=== PATIENT | female | born 1945 | race Caucasian/White ===

== ENCOUNTER 2018-10-12 10:27 | Emergency (ER) | payer MEDICARE, OTHER ==
[2018-10-12 11:14] LABS: BASO # 0.1 10^3/uL (0.0-0.2); BASO % 0.7 % (0.0-1.0); EOS # 0.3 10^3/uL (0.0-0.50); HEMATOCRIT 36.9 % (36.0-47.0); HEMOGLOBIN 12.4 g/dl (12.0-15.5); IMMATURE GRANULOCYTE % 0.7 % (0-3.0); LYMPH # 0.7 10^3/uL (1.5-4.5); LYMPH % 6.5 % (24.0-44.0); MEAN CORPUSCULAR HEMOGLOBIN 31.2 pg (27.0-33.0); MEAN CORPUSCULAR HGB CONC 33.6 g/dl (32.0-36.5); MEAN CORPUSCULAR VOLUME 92.9 fl (80.0-96.0); MONO # 0.6 10^3/uL (0.0-0.8); MONO % 5.7 % (0.0-5.0); NEUTROPHILS # 8.5 10^3/uL (1.8-7.7); NEUTROPHILS % 83.4 % (36.0-66.0); PLATELET COUNT, AUTOMATED 258 10^3/uL (150-450); RED BLOOD COUNT 3.97 10^6/uL (4.00-5.40); RED CELL DISTRIBUTION WIDTH 11.3 % (11.5-14.5); WHITE BLOOD COUNT 10.2 10^3/uL (4.0-10.0)
[2018-10-12 11:37] LABS: ALBUMIN 3.5 GM/DL (3.2-5.2); ALKALINE PHOSPHATASE 60 U/L (45-117); ALT/SGPT 24 U/L (12-78); ANION GAP 6 MEQ/L (8-16); AST/SGOT 27 U/L (7-37); BILIRUBIN,DIRECT < 0.1 MG/DL (0.0-0.2); BILIRUBIN,TOTAL 0.4 MG/DL (0.2-1.0); BLOOD UREA NITROGEN 24 MG/DL (7-18); CALCIUM LEVEL 9.5 MG/DL (8.8-10.2); CARBON DIOXIDE LEVEL 32 MEQ/L (21-32); CHLORIDE LEVEL 97 MEQ/L (98-107); CREATININE FOR GFR 1.06 MG/DL (0.55-1.30); GLOMERULAR FILTRATION RATE 54.2 (>39); GLUCOSE, FASTING 99 MG/DL (70-100); LIPASE 147 U/L (73-393); POTASSIUM SERUM 3.9 MEQ/L (3.5-5.1); SODIUM LEVEL 135 MEQ/L (136-145)
== END 2018-10-12 12:05 | disposition home or self-care (01) ==
LOC: M ED 10:27
DX: I10 Essential (primary) hypertension (principal); R00.1 Bradycardia, unspecified; G89.29 Other chronic pain; M54.9 Dorsalgia, unspecified; Z79.82 Long term (current) use of aspirin; Z79.899 Other long term (current) drug therapy; Z88.2 Allergy status to sulfonamides
CPT/HCPCS: 93005

== ENCOUNTER → 2021-07-05 | Outpatient (CLI) | payer MEDICARE, OTHER ==
[~2021-07-05] MED LIST: ASPI81TA26 PO; ATEN25TA PO; ESOM0.1C PO; GABA-1171 PO; MELA3CAP2 PO; MELO15TA28 PO; METO1TAB87 PO; MIRA3350 PO; OMEG100011 PO; PRAV10TA4 PO; TRIA37.53 PO; VITA100067 PO
--- NOTE | 2021-07-05 16:07 | REPMRS ---
Patient History The patient states she has not had a clinical breast exam in over a year. Family history of endometrial cancer at age 50 or over in mother, breast cancer at age 65 in sister, unknown cancer at age 60 in sister, unknown cancer at age 65 in mother, colorectal cancer at age 50 or over in paternal aunt. Benign core biopsy of the right breast. Took hormonal contraceptives for 3 years. Took unspecified hormones for 3 years. covid vaccine 11/2020 left arm. 12/2020 left arm. Patient states no breast complaints today. Patient has signed MRS History Sheet. Digital Woman Screen Mammo: July 05, 2021 - Exam #: [id number] Bilateral CC and MLO view(s) were taken. Technologist: RT Naima Prior study comparison: December 30, 2015, bilateral digital mammo screening bilat, performed at [facility]. August 14, 2014, bilateral bilat screen digital mammo, performed at [facility] ([facility]). FINDINGS: There are scattered fibroglandular densities. Screening. Digital screening (2D) mammography was performed bilaterally in the CC and MLO projections. Additionally, breast tomosynthesis (3D mammography) was performed bilaterally in the CC and MLO projections. Todays exam was compared to the prior exam/exams. By history, the patient has no complaints of a palpable breast abnormality or other significant breast complaints. The breasts are unchanged in size and shape. There are no judi-soft tissue densities or spiculated masses. There is no internal architectural distortion. Once again, stable benign appearing calcifications are seen..There are no suspicious judi-calcific clusters. Skin thickening or nipple retraction is not present. IMPRESSION: BI-RADS Category 2- Benign Findings. There is no evidence of malignant alteration of the breasts. Followup examination recommended in one year. The Volpara volumetric breast density category is B, there are scattered areas of fibroglandular densities. This mammogram was read with the assistance of CiRBA,an FDA approved computer aided detection system for mammography. The lifetime Tyrer-Cuzick score is 7.5 % Negative x-ray reports should not delay surgical consultation if a dominant or clinically suspicious mass is present. Not all breast cancers can be identified by mammography. Therefore, we recommend that you continue to perform regular breast self-examination and physical examination and then promptly contact your physician of any concerns or changes. Adenosis and dense breasts may obscure an underlying neoplasm. Assessment: BI-RADS/ACR category 2 mammogram. Benign Findings. Recommendation Routine screening mammogram of both breasts in 1 year. Electronically Signed By: Mike Garvey DO 07/05/21 [id number]
== END ==
LOC: M WHC 14:47
DX: Z12.31 Encounter for screening mammogram for malignant neoplasm of breast (principal); M81.0 Age-related osteoporosis without current pathological fracture

== ENCOUNTER → 2021-08-04 | Outpatient (CLI) | payer MEDICARE, OTHER | LOC: M LABSMTC 10:38 | PROVIDERS: ATTEND Anesthesiology | DX: Z01.818 Encounter for other preprocedural examination (principal); Z11.52 Encounter for screening for COVID-19 ==

== ENCOUNTER 2021-08-09 07:41 | Day surgery (SDC) | payer MEDICARE, OTHER ==
[~2021-08-09] VITALS: Ht 167.6 cm; Wt 69.9 kg
[~2021-08-09 07:41] MED LIST changes: +LIDOCAINE 2% 100MG/5ML SDV (FOR ANES.) As Ordered ONE; +NS 1,000 ML IV ONE; +propofoL 200 MG/20 ML VIAL As Ordered ONE
--- OUTSIDE RECORDS SUMMARY | 2021-08-09 07:44 | CCD | Continuity of Care Document ---
Author Author Erin BLAIR F.N.P. Organization Unknown Address [address], [address] [place] [address] Phone [phone] Care Team Providers Care Cms Expert Name Role Phone Riky Donato MD AUTM [phone] Problems Description No Information Available Social History Type Date Description Comments Sex Unknown Tobacco Use Start: Unknown End: Unknown Former Cigarette Smo ker Quit 1964 (college) ETOH Use Rarely consumes alcohol Tobacco Use Start: Unknown Patient has never smoked Sun Exposure moderate amount of sun exposure Sun Exposure Has experienced blistering from sunburns Sun Exposure Uses > 30 SPF Sun Exposure Has never used tanning bed Allergies, Adverse Reactions, Alerts Active Allergies Criticality Reaction | Severity Comments Date sulfa Unable to assess criticality 04/14/2015 Medications Active Medications SIG Qnty Indications Ordering Provide r Date [place]-Smoothe/FS Scalp 0.01% Oil apply to scalp with occlusion at bedtime then shampoo out in the morning every day until clear then as needed 118.280ml L21.8 Rashida O'alireza, F.N.P. 0 06/17/2020 Clobetasol Propionate 0.05% Ointme nt apply to hands sparingly x 2 weeks then prn 15gm L30.8 Rashida O'alireza, F.N.P. 09/17/2019 Fluticasone Propionate 0.005% Oint ment apply to under breasts sparingly twice a day x 1 week then as needed itching 15gm L40.0 Rashida Casey'alireza, F.N.P. 04/14/2015 Gabapentin 100mg Capsules 1 take one capsule by mouth three times a day Unknown Pravastatin Sodium 10mg Tablets 1 tab po every other day Unknown Aspir-81 Unknown Vitamin D3 Unknown Metoprolol Tartrate 25mg Tablets 1 by mouth every day Unknown Maxzide-25 37.5-25mg Tablets Unknown Sertraline HCL 50mg Tablets Unknown Losartan Potassium 50mg Tablets 1 by mouth every day Unknown Fish Oil 875mg Capsules Unknown Claritin Unknown Immunizations Description No Information Available Vital Signs Date Vital Result Comment 06/17/2021 9:31am BP Systolic 121 mmHg BP Diastolic 62 mmHg Weight 156.00 lb Respiratory Rate 16 /min 06/17/2020 9:48am BP Systolic 122 mmHg BP Diastolic 60 mmHg Body Temperature 97.4 F Results Test Acquired Date Facility Test Result H/L Range Note R Popliteal Space (1 Of 2) 06/17/2021 Sealed [facility] Icd9 Code ICD9 Code: L57.0 1, 2 PDFReport SEE IMAGE 1 A. No further treatment nec essary B. LN2 any remaining 2 ICD9 Code: L57.0 Protocol: shave Clinical Text: CYST VS BCC Final Diagnosis: ACTINIC KERATOSIS, HYPERTROPHIC, INFLAMED. Gross Text: The specimen grossly was irregular in shape and measured 6 x 6 mm. on the surface and 2 mm. deep. It was divided into 2 sections on the short axis. All of the tissue was submitted for processing. Microscopic Description: Markedly thickened, partially parakeratotic horn overlies epithelium showing partial thickness keratinocytic atypia between adnexal structures. There is solar elastosis in the dermis. CPT: 86121*2 Procedures Description No Information Available Medical Devices Description No Information Available Encounters Description No Information Available Assessments Date Code Description Provider 06/17/2021 D48.5 Neoplasm of uncertain behavior o f skin Rashida Blair, F.N.P. 06/17/2021 R20.8 Other disturbances of skin sensa tion Rashida Blair, F.N.P. 06/17/2021 L82.1 Other seborrheic keratosis Rosemarie Blair, F.N.P. 06/17/2021 L81.4 Other melanin hyperpigmentation Rashida Blair, F.N.P. 06/17/2021 L21.8 Other seborrheic dermatitis Shanon christiano Anum F.N.P. 06/17/2021 L30.8 Other specified dermatitis Rosemarie rinmilana Blair, F.N.P. 06/17/2021 L72.3 Sebaceous cyst Rashida mora FVenusN.P. 06/17/2021 Z80.8 Family history of ma lignant neoplasm of other organs or systems Jose Angel VillaseñorN.P. 06/17/2021 Z12.83 Encounter for screening for skye gnant neoplasm of skin Jose Angel VillaseñorNJodee. Plan of Treatment Future Appointment(s):* 08/10/2021 9:00 am - Rasihda Blair F.N.P. at Main Office * 06/23/2022 9:30 am - Jose Angel VillaseñorN.P. at Main Office 06/17/2021 - Jose Angel VillaseñorN.P.* D48.5 Neoplasm of uncertain behavior of skin* Comments:* Shave biopsy today L shoulder - cyst vs SCC and R popliteal space - verrucaDiscussed risks of biopsy to includes scarring, infection, need for further treatment. Alternative to the biopsy is watchful waitingInformed consent for biopsy signed and photographs takenVerified , name and sites. The area was prepped with alcohol and anesthestized with 1% Lidocaine with Epinephrine. The wound was dressed with band-aid and Vaseline. Patient tolerated well with no complications. Specimen sent to pathology Wound care instructions given Will call with pathology when availableInstructed to call with any problems * R20.8 Other disturbances of skin sensation* Comments:* See above. * L82.1 Other seborrheic keratosis* Comments:* Reassurance Discussed seborrheic keratoses are benign warty growths on the skin that appear with age and that they are not contagious The precise cause of Doug K's is unknown although can run in families so genes may play a role Discussed if ever becomes irritated to call for a removal appointment. * L81.4 Other melanin hyperpigmentation* Comments:* Solar lentigines - ReassuranceDiscussed that solar lentignes appear from the sun that was received years agoSunscreen use and sun protection discussed. * L21.8 Other seborrheic dermatitis* Comments:* StableContinue [place]-Smoothe/FS Oil PRN for flares. Knows to apply to damp scalp and cover with shower cap overnight. Shampoo in AM with OTC medicated shampoo.Instructed to call with any problems * L30.8 Other specified dermatitis* Comments:* StableContinue Clobetasol 0.05% ointment as needed for flares.Knows how to use topical steroid safely and not over use to prevent atrophyInstructed to call with any problems * L72.3 Sebaceous cyst* Comments:* Reassurance. * Z80.8 Family history of malignant neoplasm of other organs or systems* Comments:* Family history of MM See above * Z12.83 Encounter for screening for malignant neoplasm of skin* Comments:* See above * Follow up:* [place] [facility] [place] Status Description No Information Available Mental Status Description No Information Available Referrals Description No Information Available"
--- OUTSIDE RECORDS SUMMARY | 2021-08-09 07:44 | CCD | Continuity of Care Document ---
Author Author Erin BLAIR F.N.P. Organization Unknown Address [address], [address] [place] [address] Phone [phone] Care Team Providers Care Team Cdl Driver Name Role Phone Riky Donato MD AUTM [phone] Problems Description No Information Available Social History [...] SIG Qnty Indications Ordering Provide r Date [place]-Smoothe/FS Scalp 0.01% Oil apply to scalp with [...] R Popliteal Space (1 Of 2) 06/17/2021 Localize [facility] Icd9 Code ICD9 Code: L57.0 1, 2 [...] is solar elastosis in the dermis. CPT: 76115*2 Procedures Date Code Description Status 06/17/2021 61053 Office/Outpatient Established Mo d MDM 30-39 Min Completed 06/17/2021 52641 Each Separate/Additional Lesion Completed 06/17/2021 60924 Shave Biopsy Of Skin, Single Les ion Completed Medical Devices Description No Information Available Encounters Type Date Location Provider Dx Diagnosis Office Visit 06/17/2021 9:45a Main Office Amarilys Villaseñor D48.5 Neoplasm of uncertain behavior of skin R20.8 Other disturbances of skin s ensation L82.1 Other seborrheic keratosis L81.4 Other melanin hyperpigmentat ion L21.8 Other seborrheic dermatitis L30.8 Other specified dermatitis L72.3 Sebaceous cyst Z80.8 Family history of malignant neoplasm of organs or systems Z12.83 Encounter for screening for malignant neoplasm of skin Assessments Date Code Description Provider 06/17/2021 D48.5 Neoplasm of uncertain behavior o f skin Rashida Blair, F.N.P. 06/17/2021 R20.8 Other disturbances of skin sensa tion Rashida Blair, F.N.P. 06/17/2021 L82.1 Other seborrheic keratosis Rosemarie Blair, F.N.P. 06/17/2021 L81.4 Other melanin hyperpigmentation Rashida Blair, F.N.P. 06/17/2021 L21.8 Other seborrheic dermatitis Shanon Blair, F.N.P. 06/17/2021 L30.8 Other specified dermatitis Rosemarie Blair, F.N.P. 06/17/2021 L72.3 Sebaceous cyst Rashida mora, F.N.P. 06/17/2021 Z80.8 Family history of ma lignant neoplasm of other organs or systems Rashida Blair, F.N.P. 06/17/2021 Z12.83 Encounter for screening for skye gnant neoplasm of skin Rashida Blair, F.N.P. Plan of Treatment Future Appointment(s):* 08/10/2021 9:00 am - Rashida Blair, F.N.P. at Main Office * 06/23/2022 9:30 am - Rashdia Blair, F.N.P. at Main Office 06/17/2021 - Rashida Blair, F.N.P.* D48.5 Neoplasm of uncertain behavior of skin* [...] * L21.8 Other seborrheic dermatitis* Comments:* StableContinue [place]-Smoothe/FS Oil PRN for flares. Knows to apply [...] Comments:* See above * Follow up:* Yearly/PRN- [facility] Functional Status Description No Information Available Mental Status Description No Information Available Referrals Description No Information Available"
--- OUTSIDE RECORDS SUMMARY | 2021-08-09 07:44 | CCD | Clinical Summary ---
Author Author [facility] Organization [facility] Address [address] [place] [address] Phone Care Team Providers Care Harbor Tug Captain Name Role Phone Dayne OSCAR, Dr Sky Unavailable [phone] [facility] Radiology, Imaging Unavailable [phone] Ray DO, Jemma L PP [phone] [facility] Un[facility] [phone] Reason for Referral Date Encounter Description Provider Reason for Referral 06/08/21 Maxim Emmanuel COPPER ROLLER HANDLER PRINTING Request Consu ltation By Specialist Reason for Visit and Chief Complaint visit for: recheck chronic problems, med recheck, visit for: Telephonic Encoun ter for Acute Care. Telephonic visit is being utilized due to the COVID19 pandem ic - The Chief Complaint is: pt screened for telephonic appt for follow up on h er eye, pt states that her eye seems to be getting some what better but it still looks sore in the spot and pt states that she did see her eye dr, Dr. sexton. pt states that she wants to discuss the allergy med that was discussed before and a lso states that she has a fax number for [facility] radiology for mammogram [phone] due to [facility] being part of [facility]. pt has an gustabo t first part of June there [place] Problems Includes: Problems addressed during this encounter and other active Problems Current Visit Onset Date - Time Resolved Date - Time Provider C ondition Status Allergic Rhinitis 04/04/2018 - 12:00AM Jemma L Ray DO Active Hypertension (Systemic) 01/22/2015 - 12:00AM Eufemia Matamoros RUG INSPECTOR HELPER Active Past Visits Onset Date - Time Resolved Date - Time Provider Co ndition Status Hyponatremia 05/21/2020 - 12:00AM Jemma L Ray DO Acti ve Osteoporosis Without Current Pathological Fracture 05/01/2019 - 12:00AM Jemma L Ray DO Active Note: ; DEXA 05/07/19 showed osteopenia Tremor 01/31/2019 - 12:00AM Jemma L Ray DO Acti ve Skin Disorder Exanthem 01/31/2019 - 12:00AM Jemma L R ay DO Active Bursitis Left Hip 12/13/2018 - 12:00AM Jemma L Ray DO Active Note: seeing PT Generalized Anxiety Disorder 12/13/2018 - 12:00AM Ken da L Ray DO Active Osteoarthritis Localized Primary Hip Left 08/24/2018 - 12:00AM Jemma L Ray DO Active Intervertebral Disc Degeneration - Lumbar 08/23/2018 - 12:00AM Jemma L Ray DO Active 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 04/04/2018 - 12:00 AM Jemma L Ray DO Active Iliotibial Band Friction Syndrome 04/06/2017 - 12:00AM Jemma L Ray DO Active Carpal Tunnel Syndrome Right 02/01/2017 - 12:00AM Ken da L Ray DO Active 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 12/20/2016 - 12:00AM Jemma L Ray DO Active Actinomycosis Cutaneous Erythrasma 03/06/2015 - 12:00AM Jemma L Ray DO Active Vitamin D Deficiency 03/06/2015 - 12:00AM Jemma L Ray DO Active Colon Screening 02/21/2012 - 12:00AM Jemma L Ray DO A ctive Note: Unchanged - Colonoscop y 05/19/2016; needs repeat in 2 years Hyperlipidemia 08/19/2011 - 12:00AM Jemma L Ray DO Ac tive Note: Unchanged Trigeminal Neuralgia 02/18/2011 - 12:00AM Viji dickens RUG INSPECTOR HELPER Active Note: Well-Controlled - Cont rolled with Gabapentin,usually taking 100 mg daily; more prn Menopause 07/26/2010 - 12:00AM Milvia Campbell NP Active Note: Unchanged - Bone Densi ty 08/02 normal; followed by Dr. Deras Primary Insomnia 07/26/2010 - 12:00AM Milvia Campbell NP Active Note: Unchanged - Uses Ximena onin prn OSTEOARTHRITIS MULTIPLE SITES 09/22/2009 - 12:00AM Melva Campbell NP Active Note: Unchanged Plan of Treatment Pending Tests Order Diagnosis Results Due Ordering Provi orin Lab XR DEXA HIPS PELVIS SPINE 06/25/21 Bl markel Emmanuel NP Lab COMPREHENSIVE METABOLIC PANEL 06/26/21 Maxim Emmanuel NP Lab MG MAMMOGRAM BILAT DIG SCREEN 06/26/21 Maxim Emmanuel NP Future Appointments Date Time Location Provider Chronic Disease Follow-up 09/09/2021 8:00AM [facility] Maxim Emmanuel NP Future Tests Order Diagnosis Results Due Ordering Provid er Visit Summary - Standard Visit Visit Summary Standard Visi t Encntr screen mammogram for malignant neoplasm of breast 06/08/21 Maxim sellers NP Lab US BREAST BILATERAL COMPLETE 07/08/21 Maxim Emmanuel NP - Instructions for patient - Return to the clinic if condition wors ens or new symptoms arise - Continue current medication except whe re otherwise noted At all visits, please bring in all of your medications, including over the counter medications, in their original containers. This helps to maintain an accurate medication list and avoid medication errors. Thank you. Assessments Includes: Assessments from this encounter - Chalazion of right eyelid - Allergic rhinitis - Hypertension Instructions Includes: Instructions from this encounter Instructions to patient Instructions for patient Medical Equipment - Implanted Devices Includes: Current DevicesNo Medical Equipment Recorded Medications Includes: Medications discussed during this encounter and other current Medicati ons Discontinued / Stopped on this date Andres Emmanuel NP on 05/27/2021 Bacitracin 500 UNIT/GM Ophthalmic Ointment Provider: Maxim Emmanuel NP Diagnosis: Chalazion right eye, unspecified eyelid New / Renewed during this visit Maxim Emmanuel NP on 06/08/2021 EQ Loratadine 10 MG Oral Tablet Provider : Maxim Emmanuel NP 90 day supply: 90 tablet, 3 refills Diagnosis: All ergic rhinitis, unspecified once a day Pharmacy: [facility] - [address] [place] [address], [id number] - Current Medications (continue as prescribed) Gabapentin 100 MG Oral Capsule 05/27/2021 - 11/23/2021 Provi orin: Maxim Emmanuel NP Diagnosis: Trigeminal neuralgia three times a day 1 cap tid Maxzide-25 37.5-25 MG Oral Tablet 05/27/2021 - 11/23/2021 Pr ovider: Maxim Emmanuel NP Diagnosis: Essential (primary) hypertension once a day 1 tab daily Zoloft 50 MG Oral Tablet 05/27/2021 - 11/23/2021 Provider: Maxim Emmanuel NP Diagnosis: once a day; Metoprolol Succinate ER 50 MG Oral Tablet Extended Rel ease 24 Hour 05/27/2021 - 11/23/2021 Provider: Maxim Emmanuel NP Diagnosis: once a day Losartan Potassium 25 MG Oral Tablet 05/27/2021 - 11/23/2021 Provider: Maxim Emmanuel NP Diagnosis: once a day [facility] Fluticasone Propionate 50 MCG/ACT Nasal Suspension 05/27 - 05/22/2022 Provider: Maxim Emmanuel NP Diagnosis: Allergic rhinitis, u nspecified two sprays each nostril daily Erythromycin 5 MG/GM Ophthalmic Ointment 03/17/2021 Provider: Nalini Zavala NP Diagnosis: Unspecified conjunct ivitis Instill 1cm ribbon into affected eye QID x7days. Pravastatin Sodium 10 MG Oral Tablet 11/18/2020 Pro vider: Jemma Hector DO Diagnosis: as directed once every other day Loratadine 10 MG Oral Tablet 09/07/2020 Provider: Jess Lynn COPPER ROLLER HANDLER PRINTING Diagnosis: Acute sinusitis, uns pecified 1 tab by mouth once a day Triamcinolone Acetonide 0.1% External Ointment 01/31/2019 Provider: Jemma Hector DO Diagnosis: as directed; apply to thumb bid Vitamin D3 1000UNIT Oral Capsule 10/22/2018 Provide r: Diagnosis: MiraLax Powder 09/14/2016 Provider: Diagnosis: prn. recommended after colonoscopy [place] 3 1000 MG Capsule 03/10/2016 Provider: Diagnosis: Aspirin 81 MG Tablet 03/10/2016 Provider: Diagnosis: Medications Administered Includes: Administered Medications from this encounterNo Administered Medications Recorded Vital Signs Includes: Vital Signs from this encounter Vital Name 06/08/2021 09:58A Blood Pressure Sitting R 130/70 Weight (lb) 155.8 Pain Level 1 Note: pt unable to get full set of vitals. [place] Results Includes: Results discussed during this encounterNo Results Recorded For Specified Dates History of Present Illness Includes: History of Present Illness from this encounter Erin Trimble is a 76 year old female. - Allergy list reviewed - Medication reconciliation performed - Medication list reviewed - No systemic symptoms - No fever - No chills - No cardiovascular symptoms - No chest pain or discomfort - The heart rate was not slow - The heart rate was not fast - No pulmonary symptoms - No dyspnea - No cough - No wheezing - No gastrointestinal symptoms - No urinary symptoms - No skin symptoms - - Primary physician: Maxim Emmanuel NP - - No request for consultation by special ist - No previous emergency room visit HPI [use for free text] Erin presents today for follow up labs and eye chalazion. Pt states she has been hot packing- tried bacitracin but states it burned on application and stopped using this. She does follow with optometry and is being referred to ophthalmology in [place] for this and potential cataract surgery. Pt states she has had improvement with hot packing- no longer having drainage, not painful, no visual disturbance. Repeat CMP showed increased gfr but decreased sodium, she is on thiazides diuretic for several years. Pt states this has happened in the past, she will add back sodium to her diet and start electrolyte drinks. She is asymptomatic, neg for H/A, lightheadedness, BP is stable.Repeat labs offered to pt and declined. Pt is neg for cardiac/respiratory/GI ROS. Follow up planned. Time spent on encounter 16min No active illness within the past week (temp > 100.0 F), no allergies (vaccines, eggs, gelatin), and no recent immunization (live virus: MMR, Varicella, Shingles, Rotovirus, Influenza in past 28 days). No diagnosis of (current or chance of in the next month). No diagnosis of adverse effect of vaccines. No diagnosis of neurologic disorder (Claire Davenport, Uncontrolled Seizure disorder). No diagnosis of immunologic disorder (cancer, leukemia, AIDS, other). No gamma globulin (in the past year). No steroids (in the past three months). No cancer chemotherapeutic agents (any anti-cancer treatment in the past one month). No blood transfusion (or blood products in the past one month). No need for vaccination. Need for vaccination TDaP VIS Sheet date 12/16/14 given. 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 06/08/2021 Alcohol use 06/08/2021 Caffeine use 2 servings 06/08/2021 Educational level Bachelors degree 06/08/2021 Exercise frequency Summer she is more active with [employer] five miles per week 06/08/2021 No domestic violence 06/08/2021 No physical disability 06/08/2021 No secondhand cigarette smoke exposure 06/08/2021 Normal activities of daily living 06/08/2021 Not a current smoker 06/08/2021 Not using drugs 06/08/2021 Smoking status 03/17/2021 : Never smoker 06/08/2021 Alcohol use Denies alcohol consumption 06/08/2021 Drug use Denies Drug Use 06/08/2021 Smoking status 06/08/2021 : Never smoker 06/08/2021 Procedures and Surgical History Includes: Procedures from this encounter Procedures Code Diagnosis Performing Provider Service Location Service Date Transition in care medication list update total face to face time counseling and coordination of care was more than 50% of encounter time see problem list, issues of which were discussed with patient Clinical summary provided to patient Summary provided electronically in CCDA format & reasonable certainty of receipt Surgical History Last Updated Surgical / procedural history Tubal Ligation ~[place] re moved from you trachea 06/08/2021 Medical History Includes: Medical History addressed during this encounter Description Last Updated Aborta 0 06/08/2021 3 06/08/2021 Osteopenia 01/13/2017 06/08/2021 Para 3 06/08/2021 Family History Includes: Family History addressed during this encounter Description Last Updated significant for extensive dementia 06/08/2021 Family history changed mom 88 from Alzheimer's 0 06/08/2021 Family history of cancer Mom had Melanoma and Uterine Cancers 06/08/2021 Family history of depression Father 06/08/2021 Family history of heart disease Father and Mother Family history of melanoma in situ of the skin 021 Maternal history of not using drugs 06/08/2021 No maternal history of depression 06/08/2021 No paternal history of depression 06/08/2021 Paternal history of not using drugs 06/08/2021 Review of Systems Includes: Review of Systems from this encounter Systemic: Not feeling poorly (malaise). Head: No headache. Neck: No neck pain. Eyes: No vision problems. Otolaryngeal: No hearing loss, no earache, no nasal discharge, and no sore throat. Cardiovascular: No chest pain or discomfort. Pulmonary: No dyspnea and no cough. Gastrointestinal: Normal appetite and no heartburn. No nausea, no vomiting, no abdominal pain, no diarrhea, and no constipation. Genitourinary: No genitourinary symptoms. Musculoskeletal: No muscle aches, no localized joint pain, and no localized joint stiffness. Neurological: No dizziness, no motor disturbances, and no sensory disturbances. Psychological: No psychological symptoms, no anxiety, no depression, and no sleep disturbances. Skin: No skin lesions and no rash. Mental Status Includes: Mental Status from this encounter Description Cognitive functioning was normal Oriented to time, place, and person Thought processes were not impaired No anxiety The thought content revealed no impairme nt Functional Status Includes: Functional Status from this encounterNo Functional Status Recorded Physical Exam Includes: Physical Exam from this encounter Skin: -the skin color and pigmentation were normal -the skin general appearance was normal Ears, Nose, Throat: -no nasal discharge seen Neck: -the thyroid showed no abnormalities -no cervical mass was seen -No carotid bruits Lymph Nodes: -the supraclavicular lymph nodes were not enlarged Lungs: -normal breath sounds/voice sounds -no wheezing was heard -no rhonchi were heard -no rales/crackles were heard Cardiovascular System: -no murmurs were heard -heart rate and rhythm normal -no bradycardia present -no tachycardia present Abdomen: -abdominal non-tender Psychiatric Exam: -the affect was normal -thought processes were not impaired -the thought content revealed no impairment Neurological System: -cognitive functioning was normal -oriented to time, place, and person General Status: -in no acute distress Speaking in full sentences -in no acute distress -well developed -well nourished Vital Signs: -current vital signs reviewed per patient report -current vital signs reviewed Immunizations Includes: Immunizations addressed during this encounterNo Immunizations Recorded Allergies Includes: Active Allergies Substance Type Reaction Onset Date - Time Resolved Date - Ti me Status Sulfa Antibiotics Allergy 01/21/2010 - 12:00AM Active Encounters Encounter Provider Location Date Check-In Time Check-Out Time D iagnosis Telephonic Encounter Maxim Emmanuel NP [facility] 06/08/2021 10: 00AM 10:40AM Allergic Rhinitis, Hypertension (Systemi c), Chalazion Right Eyelid Insurance Includes: Active Insurance Policies Plan Name Member ID Group # Subscriber Relationship Effective Da dolly 1 - [employer] [id number] Erin Trimble Self 10/2010 - Unknown 2 - [employer]- [id number] Erin Trimble Self 10/23/2016 - Unknown Advance Directives Includes: Current Advance Directives Directive Pat Aware Third Libertarian Effective Date Reviewed Status RHIO Yes 08/21/2012 Current and Ve rified Note: 08/21/12 Health Care Proxy Yes 07/25/2013 Current and Verified Living Will Yes 07/25/2013 Supported By Healthcare Will Ebola Screening Performed Yes 11/13/2019 Current and Verified Note: Within the last month, have you traveled outside of the [place]? - NO packet given Pt Bill of Rights, Priv Prac, Ad Dir Yes 11/18/2020 Current and Verified Note: Pt declined AD packet Health Concerns Includes: Health Concerns for current assessments Hypertension (systemic) Onset 01/22/2015 Goals Includes: Active Goals for current assessments HTN: Maintain Blood Pressure Less than 1 40/90 Added 12/28/2018 by Provider Health Concern: Hypertension (systemic) Interventions Includes: Interventions for current assessments Take medication(s) as prescribed: Added 12/28/2018 Goal: HTN: Maintain Blood Pressure Less than 140/90 Linked Medication: Losartan Potassium 25 MG Oral Tablet Linked Medication: Metoprolol Succinate ER 50 MG Oral Tablet Extended Release 24 Hour Linked Medication: Maxzide-25 37.5-25 MG Oral Tablet Be compliant with taking medication and keeping follow-up appiontments Added 12/28/2018 Goal: HTN: Maintain Blood Pressure Less than 140/90 Diet: Reduce sodium (salt) and caffeine Added 12/28/2018 Goal: HTN: Maintain Blood Pressure Less than 140/90 Evaluations & Outcomes Includes: Evaluations & Outcomes for current assessments Goal is In Progress Added 12/28/2018 - In Progress Goal: HTN: Maintain Blood Pressure Less than 140/90
--- OUTSIDE RECORDS SUMMARY | 2021-08-09 07:44 | CCD | Clinical Summary ---
Author Author [facility] Organization [facility] Address [address] [place] [address] Phone Care Team Providers Care Grinder Hand Name Role Phone Dayne OSCAR, Dr Sky Unavailable [phone] [facility] Radiology, Imaging Unavailable [phone] Ray DO, Jemma L PP [phone] [facility] Unavailable [phone] Reason for Referral No Reason for Referral Recorded Reason for Visit and Chief Complaint Chart Update Problems Includes: Problems addressed during this encounter and other active Problems All Visits Onset Date - Time Resolved Date [...] - 12:00AM Jemma L Ray DO Active Allergic Rhinitis 04/04/2018 - 12:00AM Jemma L Ray DO Active 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 04/04/2018 - 12:00 AM Jemma L Ray DO Active Iliotibial Band Friction Syndrome 04/06/2017 - 12:00AM Jemma L Ray DO Active Carpal Tunnel Syndrome Right 02/01/2017 - 12:00AM Ken Engel Ray DO Active 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 12/20/2016 - 12:00AM Jemma L Ray DO Active Actinomycosis Cutaneous Erythrasma 03/06/2015 - 12:00AM Jemma L Ray DO Active Vitamin D Deficiency 03/06/2015 - 12:00AM Jemma L Ray DO Active Hypertension (Systemic) 01/22/2015 - 12:00AM Eufemia Matamoros HAND CLERICAL VERIFIER Active Colon Screening 02/21/2012 - 12:00AM Jemma L Ray DO A ctive Note: Unchanged - Colonoscop y 05/19/2016; needs repeat in 2 years Hyperlipidemia 08/19/2011 - 12:00AM Jemma L Ray DO Ac tive Note: Unchanged Trigeminal Neuralgia 02/18/2011 - 12:00AM Viji Sala chrissie HAND CLERICAL VERIFIER Active Note: Well-Controlled - Cont rolled with [...] NP Active Note: Unchanged Plan of Treatment Future Appointments Date Time Location Provider Chronic Disease Follow-up 09/09/2021 8:00AM [facility] Maxim Emmanuel NP Assessments Includes: Assessments from this encounterNo Assessments Recorded Instructions Includes: Instructions from this encounterNo Instructions Recorded Medical Equipment - Implanted Devices Includes: Current DevicesNo Medical Equipment Recorded Medications Includes: Medications discussed during this encounter and other current Medicati ons Current Medications (continue as prescribed) Pravastatin Sodium 10 MG Oral Tablet 06/22/2021 - 12/19/2021 Provider: Ellie Bond HAND CLERICAL VERIFIER Diagnosis: as directed once every other day EQ Loratadine 10 MG Oral Tablet 06/08/2021 - 06/03/2022 Prov ider: Maxim Emmanuel NP Diagnosis: Allergic rhinitis, u nspecified once a day Gabapentin 100 MG Oral Capsule 05/27/2021 - 11/23/2021 Provi orin: Maxim Emmanuel ASH WORKER Diagnosis: Trigeminal neuralgia three times a day 1 cap tid Maxzide-25 37.5-25 MG Oral Tablet 05/27/2021 - 11/23/2021 Pr ovider: Maxim Emmanuel ASH WORKER Diagnosis: Essential (primary) hypertension once a day [...] 1cm ribbon into affected eye QID x7days. Loratadine 10 MG Oral Tablet 09/07/2020 Provider: Jess Lynn ASH WORKER Diagnosis: Acute sinusitis, uns pecified 1 tab by mouth once a day Triamcinolone Acetonide 0.1% External Ointment 01/31/2019 Provider: Jemma Hector DO Diagnosis: as directed; apply to thumb bid Vitamin D3 1000UNIT Oral Capsule 10/22/2018 Provide r: Diagnosis: MiraLax Powder 09/14/2016 Provider: Diagnosis: prn. recommended after colonoscopy [place] 3 1000 MG Capsule 03/10/2016 Provider: Diagnosis: Aspirin 81 MG Tablet 03/10/2016 Provider: Diagnosis: Medications Administered Includes: Administered Medications from this encounterNo Administered Medications Recorded Vital Signs Includes: Vital Signs from this encounterNo Vital Signs Recorded For Specified Dates Results Includes: Results discussed during this encounterNo Results Recorded For Specified Dates History of Present Illness Includes: History of Present Illness from this encounterNo History of Present Illness Recorded Social History No Social History Recorded - Smoking Status Unknown Procedures and Surgical History Includes: Procedures from this encounterNo Procedures For Specified Dates. No Surgical History Recorded Medical History Includes: Medical History addressed during this encounterNo Medical History Recorded Family History Includes: Family History addressed during this encounterNo Family History Recorded Review of Systems Includes: Review of Systems from this encounterNo Review of Systems Recorded Mental Status Includes: Mental Status from this encounterNo Mental Status Recorded Functional Status Includes: Functional Status from this encounterNo Functional Status Recorded Physical Exam Includes: Physical Exam from this encounterNo Physical Exam Recorded Immunizations Includes: Immunizations addressed during this encounterNo Immunizations Recorded Allergies Includes: Active Allergies Substance Type Reaction Onset Date - Time Resolved Date - Ti me Status Sulfa Antibiotics Allergy 01/21/2010 - 12:00AM Active Encounters Encounter Provider Location Date Check-In Time Check-Out Time D iagnosis Chart Update Milvia Wesley RN 07/13/2021 1:47PM 11:59PM Insurance Includes: Active Insurance Policies Plan Name Member ID Group # Subscriber Relationship Effective Da dolly 1 - [employer] [id number] Erin Barbosa Atilio Self 10/2010 - Unknown 2 - [facility]- [id number] Erin Trimble Self 10/23/2016 - Unknown Advance Directives Includes: Current Advance Directives Directive Pat Aware Third Republican Effective Date Reviewed Status RHIO Yes 08/21/2012 [...] AD packet Health Concerns Includes: Health Concerns addressed during this encounterNo Active Health Concerns Recorded Goals Includes: Goals addressed during this encounterNo Active Goals Recorded Interventions Includes: Interventions addressed during this encounterNo Interventions Recorded Evaluations & Outcomes Includes: Evaluations & Outcomes addressed during this encounterNo Outcomes Recorded
--- OUTSIDE RECORDS SUMMARY | 2021-08-09 07:45 | CCD | Continuity of Care Document ---
Author Author Erin CLAY [facility] Organization Unknown Address [address], [address] [place] [address] Phone [phone] Care Team Providers Care Collections Director Name Role Phone Jemma Hector D.O. AUTM [phone] Problems Description No Active Problems Social History Type Date Description Comments Sex Unknown ETOH Use Rarely Tobacco Use Start: Unknown Non Smoker Allergies, Adverse Reactions, Alerts Active Allergies Reaction Severity Comments Date Sulfa 03/29/2016 Medications Active Medications SIG Qnty Indications Ordering Provide r Date Sutab [id number] Tablets take tablets as directed per doctor for bowel prep. 1kit Z12.11 Won kincaid MD 05/04/[address] take 4 tabs by mouth prior to procedure per instructions. 4tabs Z12.11 Won Castillo MD 05/04/[address] 1 by mouth every day Unknown Vitamin D 1000Unit Tablets 1 by mouth every day Unknown Triamterene/Hydrochlorothiazide 37.5-25mg Tablets daily Unknown Pravastatin Sodium 10mg Tablets every other day Unknown Gabapentin 100mg Capsules up to three times a day Unknown Miralax Powder 17 gm every d ay Won Castillo MD Metoprolol Succinate ER 50mg Tablets ER 24HR 1 by mouth every day Unknown Losartan Potassium 25mg Tablets 1 by mouth every day Unknown Sertraline HCL 25mg Tablets 1 by mouth every day Unknown Fish Oil 1000mg Capsules [place] y Unknown Acetaminophen 500mg Tablets a s needed Unknown Immunizations Description No Information Available Vital Signs Date Vital Result Comment 05/04/2021 8:51am BP Systolic 126 mmHg BP Diastolic 70 mmHg Height 67 inches 5'7" Weight 160.00 lb BMI (Body Mass Index) 25.1 kg/m2 Malin Body Weight 135 lb Weight 72.576 kg BSA (Body Surface Area) 1.84 m2 03/31/2016 11:01am BP Systolic 142 mmHg BP Diastolic 80 mmHg Height 67 inches 5'7" Weight 151.00 lb BMI (Body Mass Index) 23.6 kg/m2 Malin Body Weight 135 lb Weight 68.494 kg BSA (Body Surface Area) 1.79 m2 Results Description No Information Available Procedures Description No Information Available Medical Devices Description No Information Available Encounters Description No Information Available Assessments Date Code Description Provider 05/04/2021 Z12.11 Encounter for screening for skye gnant neoplasm of colon JERRELL Ruiz 05/04/2021 Z86.010 Personal history of colonic poly ps JERRELL Ruiz 05/04/2021 Z80.0 Family history of malignant neop lasm of digestive organs JERRELL Ruiz Plan of Treatment 05/04/2021 - JERRELL Ruiz* Z12.11 Encounter for screening for malignant neoplasm of colon * Z86.010 Personal history of colonic polyps * Z80.0 Family history of malignant neoplasm of digestive organs * * New Medication:* Sutab [id number] mg * Dulcolax 5 mg * New Orders:* Colonoscopy, Ordered: 05/04/21 * Comments:* Will arrange for colonoscopy. Reviewed risks and benefits of the procedure, as well as other options, with the patient. Bowel prep procedure was discussed with patient, as well as risks and side effects associated with the bowel prep. Patient verbalized understanding of all of the above and is in agreement to proceed. Patient will seek medical attention for any acute changes. Will monitor. * Follow up:* As scheduled, sooner if needed. Functional Status Description No Information Available Mental Status Description No Information Available Referrals Refer to Reason for Referral Status Appt Date Won Castillo M.D. 6 YEAR COLO SCREENING Scheduled 05/04 [facility], Gastroenterology [address], [place] [address] [phone]
--- OUTSIDE RECORDS SUMMARY | 2021-08-09 07:45 | CCD | Clinical Summary ---
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 pt states that she wants to discuss the medication Erythromycin for her eye, she has been having eye crystals in it. and wants tro know if she should start takiing it again. pt states that she needs a TDAP and orders for bine densitiy and mammogram and to make sure that the orders are signed. [id number] Problems Includes: Problems addressed during this encounter and other active Problems Current Visit Onset Date - Time Resolved Date - Time Provider C ondition Status Generalized Anxiety Disorder 12/13/2018 - 12:00AM Ken da L Ray DO Active Intervertebral Disc Degeneration - Lumbar 08/23/2018 - 12:00AM Jemma L Ray DO Active Allergic Rhinitis 04/04/2018 - 12:00AM Jemma L Ray DO Active Hypertension (Systemic) 01/22/2015 - 12:00AM Eufemia Matamoros HEALTH PHYSICIST Active Hyperlipidemia 08/19/2011 - 12:00AM Jemma L Ray DO Ac tive Note: Unchanged Past Visits Onset Date - Time Resolved Date - Time Provider Co ndition Status Hyponatremia 05/21/2020 - 12:00AM Jemma L Ray DO Acti ve Osteoporosis Without Current Pathological Fracture 05/01/2019 - 12:00AM Jemma L Ray DO Active Note: ; DEXA 05/07/19 showed osteopenia Visit For: Screening Exam Malignant Neoplasm Breast 05/01/2019 - 12:00AM Maxim Emmanuel CRUSHER MACHINE OPERATOR Inactive Tremor 01/31/2019 - 12:00AM Jemma L Ray DO Acti ve Skin Disorder Exanthem 01/31/2019 - 12:00AM Jemma L R ay DO Active Bursitis Left Hip 12/13/2018 - 12:00AM Jemma L Ray DO Active Note: seeing PT Osteoarthritis Localized Primary Hip Left 08/24/2018 - 12:00AM Jemma L Ray DO Active Arthralgia - Pelvis / Hip / Femur Left 08/23/2018 - 12:00AM Maxim 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 Deras Primary Insomnia 07/26/2010 - 12:00AM Milvia Campbell NP Active Note: Unchanged - Uses Ximena onin prn OSTEOARTHRITIS MULTIPLE SITES 09/22/2009 - 12:00ISAMAR Campbell NP Active Note: Unchanged Plan of Treatment Pending Tests Order Diagnosis Results Due Ordering Provi orin [id number] - *Revisit Acute Acute Follow-up Telepho jazmine Encounter for general adult medical exam w abnormal findings 05/27/21 Maxim Emmanuel NP In House Meds - Immunizations Please give immunizations toda y per Immun. tab Encounter for general adult medical exam w abnormal findings 05/27/21 Maxim Emmanuel NP Lab COMPREHENSIVE METABOLIC PANEL 06/26/21 Maxim Emmanuel NP Lab COMPREHENSIVE METABOLIC PANEL 06/26/21 Maxim Emmanuel NP Lab MG MAMMOGRAM BILAT DIG SCREEN 06/26/21 Maxim Emmanuel NP Referrals To Diagnosis Ophthalmology Chalazion right eye, unspecified eyelid Note: Please schedule patient with provi orin Future Appointments Date Time Location Provider Telephonic Encounter 06/08/2021 10:00AM [facility] Andres Emmanuel NP Chronic Disease Follow-up 09/09/2021 8:00AM [facility] Maxim Emmanuel NP Future Tests Order Diagnosis Results Due Ordering Provid er Visit Summary - *Standard Visit wLab Visit Summary with Labs Essential (primary) hypertension 05/27/21 Maxim Emmanuel NP Lab XR DEXA HIPS PELVIS SPINE 06/26/21 Bl markel Emmanuel NP - Return to the clinic if condition worsens or new symptoms arise - Follow-up visit Assessments Includes: Assessments from this encounter - Routine history and physical see updated problem list above for impression and plan of any problems addressed today. - Chalazion of right eyelid - Allergic rhinitis - Hypertension - Hyperlipidemia - Lumbar disc degeneration - Generalized anxiety disorder Instructions Includes: Instructions from this encounter Education and Decision Aids were provide d during visit for: Patient education about pain management Patient appeared to understand therapeut ic regimen Medical Equipment - Implanted Devices Includes: Current DevicesNo Medical Equipment Recorded Medications Includes: Medications discussed during this encounter and other current Medicati ons New / Renewed during this visit Maxim Emmanuel NP on 05/27/2021 Gabapentin 100 MG Oral Capsule Provider: Maxim Emmanuel NP 90 day supply: 270 capsule, 1 refills Diagnosis: T rigeminal neuralgia three times a day 1 cap tid Pharmacy: [facility] - [address] [place] [address], [id number] - Maxzide-25 37.5-25 MG Oral Tablet Provid er: Maxim Emmanuel NP 90 day supply: 90 tablet, 1 refills Diagnosis: Ess ential (primary) hypertension once a day 1 tab daily Pharmacy: [facility] - [id number] , [facility], [address] - Zoloft 50 MG Oral Tablet Provider: Maxim Emmanuel NP 90 day supply: 90 tablet, 1 refills Diagnosis: once a day; Pharmacy: [facility] [address] [facility], [address] - Metoprolol Succinate ER 50 MG Oral Tablet Extended Release 2 4 Hour Provider: Maxim Emmanuel NP 90 day supply: 90 tablet, 1 refills Diagnosis: once a day Pharmacy: [facility] [address] [facility], [address] - Losartan Potassium 25 MG Oral Tablet Pro vider: Maxim Emmanuel NP 90 day supply: 90 tablet, 1 refills Diagnosis: once a day Pharmacy: [facility] [address] [facility], [address] - Bacitracin 500 UNIT/GM Ophthalmic Ointment Provider: Maxim Emmanuel NP 30 day supply: 3.5 gram, 0 refills Diagnosis: Chal azion right eye, unspecified eyelid apply to affected eye three times daily until cleared Pharm acy: [facility] - [id number] , [facility], [address] - [facility] Fluticasone Propionate 50 MCG/ACT Nasal Suspension Provider: Maxim Emmanuel NP 30 day supply: 1 mL, 11 refills Diagnosis: Allergi c rhinitis, unspecified two sprays each nostril daily Pharmacy: [facility] - [id number] , [facility], [address] - Current Medications (continue as prescribed) Erythromycin 5 MG/GM Ophthalmic Ointment 03/17/2021 Provider: Nalini Zavala NP Diagnosis: Unspecified conjunct ivitis Instill 1cm ribbon into affected eye QID x7days. Pravastatin Sodium 10 MG Oral Tablet 11/18/2020 Pro vider: Jemma Hector DO Diagnosis: as directed once every other day Loratadine 10 MG Oral Tablet 09/07/2020 Provider: Jess Lynn NP Diagnosis: Acute sinusitis, uns pecified 1 tab by mouth once a day Triamcinolone Acetonide 0.1% External Ointment 01/31/2019 Provider: Jemma Hector DO Diagnosis: as directed; apply to thumb bid Vitamin D3 1000UNIT Oral Capsule 10/22/2018 Provide r: Diagnosis: MiraLax Powder 09/14/2016 Provider: Diagnosis: prn. recommended after colonoscopy [place] 3 1000 MG Capsule 03/10/2016 Provider: Diagnosis: Aspirin 81 MG Tablet 03/10/2016 Provider: Diagnosis: Medications Administered Includes: Administered Medications from this encounterNo Administered Medications Recorded Vital Signs Includes: Vital Signs from this encounter Vital Name 05/27/2021 08:04A Blood Pressure Sitting R 136/74 BP Cuff Size Large Pulse Rate-Sitting (bpm) 59 Respiration Rate (breaths/min) 17 Temp-Tympanic (F) 96.2 Height (in) 66.5 Weight (lb) 157.4 Body Mass Index (kg/m2) 25.0 Body Surface Area (m2) 1.82 Pain Level 0 Oxygen Saturation (%) 100 Flow Rate (l/min) (None (Room Air)) FiO2 (%) 21 Note: 05/03- 120/67, 05/04- 120/70, 05/11- 132/65, 05/14- 130/64, 05/19- 134/70, 05/24- 144/83, 05/25- 126/72 Results Includes: Results discussed during this encounter CBC w/ Auto Diff [facility] Ordered by Jemma Hector DO on 05/17/2021 [address] [place], [address] Collected: 05/19/2021 Reported: 05/19/2021 13:43 tel :[phone] BASO # (AUTO) 0.07 10\^3/uL (0.00-0.20) N (Normal) Note: Responsible Observer: BASO # (AUTO ) BASO # (AUTO) 100.1500 (A) BASO % (AUTO) 1.0 % (0.0-2.0) N (Normal) Note: Responsible Observer: BASO % (AUTO ) BASO % (AUTO) 100.1250 (A) EOS # (AUTO) 0.53 10\^3/uL (0.00-1.10) N (Normal) Note: Responsible Observer: EOS # (AUTO) EOS # (AUTO) 100.1450 (A) EOS % (AUTO) 7.7 % (0.0-11.0) N (Normal) Note: Responsible Observer: EOS % (AUTO) EOS % (AUTO) 100.1200 (A) GRAN # (AUTO) 4.52 10\^3/uL (1.50-6.50) N (Normal) Note: Responsible Observer: GRAN # (AUTO ) GRAN #(AUTO) 100.1325 (A) GRAN % (AUTO) 65.2 % (42.0-75.0) N (Normal) Note: Responsible Observer: GRAN % (AUTO ) GRAN % (AUTO) 100.1000 (A) HEMATOCRIT 36.7 % (35.0-46.0) N (Normal) Note: Responsible Observer: HCT HEMATOCR IT 100.0400 (A) HEMOGLOBIN 11.9 G/DL (11.5-15.6) N (Normal) Note: Responsible Observer: HGB HEMOGLOB IN 100.0300 (A) IG # (AUTO) 0.0 10\^3/uL (<0.5) None Note: Responsible Observer: IG # (AUTO) IG # (AUTO) 100.1260 (A) IG % (AUTO) 0.3 % (1.00-5.00) None Note: Responsible Observer: IG % (AUTO) IG % (AUTO) 100.1255 (A) LYMPH # (AUTO) 1.0 k/uL (1.0-5.0) N (Normal) Note: Responsible Observer: LYMPH # (AUT O) LYMPH # (AUTO) 100.1350 (A) LYMPH % (AUTO) 14.5 % (20.0-51.0) L (Low) Note: Responsible Observer: LYMPH % (AUT O) LYMPH % (AUTO) 100.1100 (A) MCH 31.0 PG (27.0-34.0) N (Normal) Note: Responsible Observer: MCH MCH 100 .0600 (A) MCHC 32.4 G/DL (32-36) N (Normal) Note: Responsible Observer: MCHC MCHC 1 00.0650 (A) MCV 95.6 FL (80.0-100.0) N (Normal) Note: Responsible Observer: MCV MCV 100 .0550 (A) MONO # (AUTO) 0.78 k/uL (0.20-1.50) N (Normal) Note: Responsible Observer: MONO # (AUTO ) MONO # (AUTO) 100.1400 (A) MONO % (AUTO) 11.3 % (2.0-15.0) N (Normal) Note: Responsible Observer: MONO % (AUTO ) MONO% (AUTO) 100.1150 (A) MPV 10.3 FL (8.7-13.2) N (Normal) Note: Responsible Observer: MPV MPV 100 .0950 (A) PLATELET COUNT 282 10\^3/uL (130-400) N (Normal) Note: Responsible Observer: PLT PLATELET COUNT 100.0850 (A) RED BLOOD COUNT 3.84 10\^6/uL (3.90-5.20) L (Low) Note: Responsible Observer: RBC RED BLOO D COUNT 100.0250 (A) RDW 11.6 % (11.5-14.5) N (Normal) Note: Responsible Observer: RDW RDW 100 .0700 (A) WHITE BLOOD COUNT 6.92 10\^3/uL (4.00-10.50) N (Normal) Note: Responsible Observer: WBC WHITE BL OOD COUNT 100.0150 (A) Reviewed by Jemma Hector DO on ; All test results are final unless otherwise noted. COMPREHENSIVE METABOLIC PANEL [facility] Ordered by Jemma Hector DO on 05/17/[address] [place], [address] Collected: 05/19/2021 Reported: 05/19/2021 14:24 tel :[phone] ALB/GLOB RATIO 1.6 G/DL (1.0-3.0) N (Normal) Note: Responsible Observer: A/G RATIO AL B/GLOB RATIO 300.4100 (A) ALBUMIN 4.1 G/DL (3.0-5.1) N (Normal) Note: Responsible Observer: ALB ALBUMIN 300.3900 (A) ALKALINE PHOSPHATASE 67 U/L (40-140) N (Normal) Note: Responsible Observer: ALK PHOS ALK STEVENSON PHOSPHATASE 300.3110 (A) ALT 18 U/L (5-48) N (Normal) Note: Responsible Observer: ALT/SGPT ALT 300.3100 (A) AST 28 U/L (5-40) N (Normal) Note: Responsible Observer: AST/SGOT AST 300.3050 (A) BUN/CREAT RATIO 23 (8-36) N (Normal) Note: Responsible Observer: BUN/CREAT RA VIPIN BUN/CREAT RATIO 300.0450 (A) BILIRUBIN,TOTAL 0.5 MG/DL (0.1-1.3) N (Normal) Note: Responsible Observer: TOTAL BILI T OTAL BILIRUBIN 300.2700 (A) BLOOD UREA NITRO 28 MG/DL (7-25) H (High) Note: Responsible Observer: BUN BLOOD UR EA NITROGEN 300.0350 (A) CA 10.6 MG/DL (8.7-10.5) H (High) Note: Responsible Observer: CA CALCIUM 300.2200 (A) CHLORIDE 102 MEQ/L (94-110) N (Normal) Note: Responsible Observer: CL CHLORIDE 300.0200 (A) CARBON DIOXIDE 32 MEQ/L (22-33) N (Normal) Note: Responsible Observer: CO2 CARBON D IOXIDE 300.0250 (A) CREATININE 1.2 MG/DL (0.6-1.4) N (Normal) Note: Responsible Observer: CREAT CREATI NINE 300.0400 (A) ANION GAP 7 (5-16) N (Normal) Note: Responsible Observer: ANION GAP AN ION GAP 300.0300 (A) GFR 43.8 ML/MIN None Note: Stage G3b - Moderately to severel y decreased kidney function The GFR is an estimate of the Glomerular Filtration Rate. It is an aid to assess a patient's renal function. It is not a conclusive diagnosis of kidney disease. GFR normal is >=90 The MDRD GFR calculation is considered valid between the ages of 18 and 75 years only.Responsible Observer: GFR GFR 300.0410 (A) GLOBULIN 2.6 G/DL (1.5-3.5) N (Normal) Note: Responsible Observer: GLOB GLOBULI N 300.4050 (A) GLUCOSE 98 MG/DL (70-100) N (Normal) Note: Responsible Observer: GLU GLUCOSE 300.0500 (A) POTASSIUM 3.9 MEQ/L (3.5-5.3) N (Normal) Note: Responsible Observer: K POTASSIUM 300.0150 (A) SODIUM 137 MEQ/L (135-145) N (Normal) Note: Responsible Observer: NA SODIUM 3 00.0100 (A) TOTAL PROTEIN 6.7 G/DL (5.9-8.3) N (Normal) Note: Responsible Observer: TP TOTAL PRO TEIN 300.3750 (A) Reviewed by Jemma Hector DO on 1; All test results are final unless otherwise noted. [facility] Ordered by Jemma Hector DO on 05/17/[address] [place], [address] Collected: 05/19/2021 Reported: 05/19/2021 14:24 tel :[phone] TSH 2.232 uIU/ML (0.470-4.200) N (Normal) Note: Patients should not be tested for 72 hours post fluorescein dye angiography. A false depression of result may occur.Responsible Observer: TSH TSH 300.5500 (A) Reviewed by Jemma Hector DO on ; All test results are final unless otherwise noted. History of Present Illness Includes: History of Present Illness from this encounter Erin Trimble is a 76 year old female. - Allergy list reviewed - Medication reconciliation performed - Medication list reviewed - No headache - No epistaxis - No chest pain or discomfort - No dyspnea - No dizziness - No sleep disturbances - - No request for consultation by special ist - No previous emergency room visit - 3 - Para 3 - Aborta 0 Erin presents today for AHR. She has complaints of ongoing right eye discomfort and some drainage form what looks like to be a chalazion with white drainage but no surrounding erythremia or signs of orbital cellulitis, no visual acuity change . She has been treated in the past with erythromycin ointment, this has been ongoing for several months, comes and goes. Does not affect visual acuity. She also has several spot shed like looked at one is a [id number] non healing nevus on the top of her left shoulder and a calcified appearing nevus on the back of her right tleg also [id number]- she has gustabo with manager search engine at the end of this month. I did advise the patient I would refer to a manager search engine for both of these findings, again non changing for several months. Pt also has chronic allergy sx- pst nasal drip, would like to try flonase. She is neg for cardiac/respiratory/GI ROS.Pts BP well controlled. Labs form 05/12 reviewed- GFR43, Ca10.6, TSH WNL, glucose normal, LDL 110 trigs 75, HDL 66. Colon-pt has colonoscopy scheduled for this Julyo-07/12, needs new order [id number] due for repeat imms-due for boostrix, ordered today No active illness within the past week (temp > 100.0 F), no allergies (vaccines, eggs, gelatin), and no recent immunization (live virus: MMR, Varicella, Shingles , Rotovirus, Influenza in past 28 days). No diagnosis of (current or chance of in the next month). No diagnosis of adverse effect of vaccines. No diagnosis of neurologic disorder (Claire Salix, Uncontrolled Seizure disorder). 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 Alcohol use 05/27/2021 Caffeine use 2 servings 05/27/2021 Educational level Bachelors degree 05/27/2021 Exercise frequency Summer she is more active with [employer] five miles per week 05/27/2021 No domestic violence 05/27/2021 No physical disability 05/27/2021 No secondhand cigarette smoke exposure 05/27/2021 Normal activities of daily living 05/27/2021 Not a current smoker 05/27/2021 Not using drugs 05/27/2021 Smoking status 03/17/2021 : Never smoker 05/27/2021 Smoking status 05/27/2021 : Never smoker 05/27/2021 Procedures and Surgical History Includes: Procedures from this encounter Procedures Code Diagnosis Performing Provider Service Location Service Date Tdap, Tetanus, Diphthe[place] [id number] Encounter for immunization Robertalmas Fred Emmanuel NP 05/27/2021 continue current medication unless otherwise stated Transition in care medication list update records management 05/25/2021 - Chart Prep Performed medical regimen review Clinical summary provided to patient Summary provided electronically in CCDA format & reasonable certainty of receipt Surgical History Last Updated Surgical / procedural history Tubal Ligation ~Mass re moved from you trachea 05/27/2021 Medical History Includes: Medical History addressed during this encounter Description Last Updated Aborta 0 05/27/2021 3 05/27/2021 Osteopenia 01/13/2017 05/27/2021 Para 3 05/27/2021 Family History Includes: Family History addressed during this encounter Description Last Updated significant for extensive dementia 05/27/2021 Family history changed mom 88 from Alzheimer's 0 05/27/2021 Family history of cancer Mom had Melanoma and Uterine Cancers 05/27/2021 Family history of depression Father 05/27/2021 Family history of heart disease Father and Mother 02/2021 Family history of melanoma in situ of the skin 021 Maternal history of not using drugs 05/27/2021 No maternal history of depression 05/27/2021 No paternal history of depression 05/27/2021 Paternal history of not using drugs 05/27/2021 Review of Systems Includes: Review of Systems from this encounter Systemic: Not feeling poorly (malaise). No fever, no chills, no night sweats, and no recent weight change. Head: No headache, no facial pain, and no sinus pain. Neck: No neck pain, no neck stiffness, and no lump or swelling in the neck. Eyes: Vision problems. No itching of the eyes and no eye pain. No photophobia. Otolaryngeal: No hearing loss, no earache, no tinnitus, no nasal discharge, no epistaxis, no hoarseness, no sore throat, and no bleeding gums. No mouth sores. Breasts: No breast lump, no nipple discharge, and no pain in breast. Cardiovascular: No chest pain or discomfort, no palpitations, and the heart rate was not fast. Pulmonary: No dyspnea, not during exertion, and not nocturnal; causing awakening from sleep. Cough. No hemoptysis and no wheezing. Gastrointestinal: Normal appetite, no dysphagia, and no heartburn. No nausea, no vomiting, no abdominal pain, and no melena. No diarrhea and no constipation. Genitourinary: No hematuria, no increase in urinary frequency, and no nocturia. No dysuria. No genital lesion and no pain during intercourse. Date of last menstruation 2000. Normal menses, no dysmenorrhea, and no unexplained vaginal bleeding. Menopause has occurred. Endocrine: No polydipsia, no excessive sweating, and libido has not changed. Musculoskeletal: Muscle aches, pain localized to one or more joints, and joint stiffness localized to one or more joints. Neurological: No dizziness, no vertigo, no fainting, no motor disturbances, and no sensory disturbances. Psychological: No anxiety, no depression, and no sleep disturbances. Skin: No pruritus. No skin lesions. Rash: Mental Status Includes: Mental Status from this encounter Description Oriented to time, place, and person No anxiety Functional Status Includes: Functional Status from this encounterNo Functional Status Recorded Physical Exam Includes: Physical Exam from this encounter Eyes: -Eyes: normal Ears, Nose, Throat: -no hearing loss noted -no nasal discharge seen -no external auditory canal obstruction -the oropharynx was not inflamed Neck: -the neck demonstrated no decrease in suppleness -the thyroid showed no abnormalities -no cervical mass was seen Lymph Nodes: -the supraclavicular lymph nodes were not enlarged Lungs: -normal breath sounds/voice sounds -no wheezing was heard -no rhonchi were heard -no rales/crackles were heard Cardiovascular System: -no murmurs were heard -heart rate and rhythm normal -no bradycardia present -no tachycardia present Abdomen: -abdominal non-tender Neurological System: -oriented to time, place, and person Skin: -the skin general appearance was normal General Status: -in no acute distress -well developed -well nourished Vital Signs: -current vital signs reviewed Immunizations Includes: Immunizations addressed during this encounter Vaccine Dose # Date Site Reaction(s) Status Source Boostrix 2 05/27/2021 Left Deltoid Complete (Administered) [facility] Allergies Includes: Active Allergies Substance Type Reaction Onset Date - Time Resolved Date - Ti me Status Sulfa Antibiotics Allergy 01/21/2010 - 12:00AM Active Encounters Encounter Provider Location Date Check-In Time Check-Out Time D iagnosis AHR Blaze N Kravec CRUSHER MACHINE OPERATOR [facility] 05/27/2021 7:51AM 9:39A M Routine History and Physical, Hypertension (Systemic), Hyperlipidemia, Generalized Anxiety Disorder, Allergic Rhinitis, Intervertebral Disc Degeneration - Lumbar, Chalazion Right Eyelid Insurance Includes: Active Insurance Policies Plan Name Member ID Group # Subscriber Relationship Effective Edgardo alberto 1 - [employer] [id number] Erin Trimble Self 10/2010 - Unknown 2 - [facility]- [id number] Erin Trimble Self 10/23/2016 - Unknown Advance [...] Concerns Includes: Health Concerns for current assessments Generalized Anxiety Disorder Onset 12/13/2018 Hypertension (systemic) Onset 01/22/2015 Goals Includes: Active Goals for current assessments ANXIETY: Reduce Anxiety Related Symptoms Added 12/28/2018 by Provider Health Concern: Generalized Anxiety Disorder HTN: Maintain Blood Pressure Less than 1 40/90 Added 12/28/2018 by Provider Health Concern: Hypertension (systemic) Interventions Includes: Interventions for current assessments Take medication(s) as prescribed: Added 12/28/2018 Goal: ANXIETY: Reduce Anxiety Related Symptoms Linked Medication: Zoloft 50 MG Oral Tablet Take medication(s) as prescribed: Added 12/28/2018 Goal: [...] Progress Added 12/28/2018 - In Progress Goal: ANXIETY: Reduce Anxiety Related Symptoms Goal is In Progress Added 12/28/2018 - In Progress Goal: HTN: Maintain Blood Pressure Less than 140/90
--- OUTSIDE RECORDS SUMMARY | 2021-08-09 07:45 | CCD ---
Author Author [facility] Organization [facility] Address Unknown Phone Unavailable Care Team Providers Care Installation Specialist Name Role Phone CHANEL, L EVIE TOP TRIMMER Unavailable Unavailable CHANEL, L EVIE TOP TRIMMER Unavailable Unavailable CHANEL, L EVIE TOP TRIMMER Unavailable Unavailable CHANEL, L EVIE TOP TRIMMER Unavailable Unavailable CHANEL, L EVIE TOP TRIMMER Unavailable Unavailable CHANEL, L EVIE TOP TRIMMER Unavailable Unavailable CHANEL, L EVIE TOP TRIMMER Unavailable Unavailable CHANEL, L EVIE TOP TRIMMER Unavailable Unavailable CHANEL, L EVIE TOP TRIMMER Unavailable Unavailable CHANEL, L EVIE TOP TRIMMER Unavailable Unavailable CHANEL, L EVIE TOP TRIMMER Unavailable Unavailable CHANEL, L EVIE TOP TRIMMER Unavailable Unavailable CHANEL, L EVIE TOP TRIMMER Unavailable Unavailable CHANEL, L EVIE TOP TRIMMER Unavailable Unavailable CHANEL, L EVIE TOP TRIMMER Unavailable Unavailable CHANEL, L EVIE TOP TRIMMER Unavailable Unavailable CHANEL, L EVIE TOP TRIMMER Unavailable Unavailable CHANEL, L EVIE TOP TRIMMER Unavailable Unavailable CHANEL, L EVIE TOP TRIMMER Unavailable Unavailable CHANEL, L EVIE TOP TRIMMER Unavailable Unavailable CHANEL, L EVIE TOP TRIMMER Unavailable Unavailable CHANEL, L EVIE TOP TRIMMER Unavailable Unavailable CHANEL, L EVIE TOP TRIMMER Unavailable Unavailable CHANEL, L EVIE TOP TRIMMER Unavailable Unavailable CHANEL, L EVIE TOP TRIMMER Unavailable Unavailable CHANEL, L EVIE TOP TRIMMER Unavailable Unavailable CHANEL, L EVIE TOP TRIMMER Unavailable Unavailable CHANEL, L EVIE TOP TRIMMER Unavailable Unavailable CHANEL, L EVIE TOP TRIMMER Unavailable Unavailable CHANEL, L EVIE TOP TRIMMER Unavailable Unavailable CHANEL, L EVIE TOP TRIMMER Unavailable Unavailable CHANEL, L EVIE TOP TRIMMER Unavailable Unavailable CHANEL, L EVIE TOP TRIMMER Unavailable Unavailable CHANEL, L EVIE TOP TRIMMER Unavailable Unavailable CHANEL, L EVIE TOP TRIMMER Unavailable Unavailable CHANEL, L EVIE TOP TRIMMER Unavailable Unavailable CHANEL, L EVIE TOP TRIMMER Unavailable Unavailable CHANEL, L EVIE TOP TRIMMER Unavailable Unavailable CHANEL, L EVIE TOP TRIMMER Unavailable Unavailable CHANEL, L EVIE TOP TRIMMER Unavailable Unavailable CHANEL, L EVIE TOP TRIMMER Unavailable Unavailable CHANEL, L EVIE TOP TRIMMER Unavailable Unavailable CHANEL, L EVIE TOP TRIMMER Unavailable Unavailable CHANEL, L EVIE TOP TRIMMER Unavailable Unavailable ALEXANDRO G[place]am, Evie Unavailable [place], Maris JOINERY PATTERNMAKER Unavailable Unavailable [place], Maris JOINERY PATTERNMAKER Unavailable Unavailable [place], Maris JOINERY PATTERNMAKER Unavailable Unavailable [place], Maris JOINERY PATTERNMAKER Unavailable Unavailable [place], Maris JOINERY PATTERNMAKER Unavailable Unavailable [place], Maris JOINERY PATTERNMAKER Unavailable Unavailable [place], Maris JOINERY PATTERNMAKER Unavailable Unavailable [place], Maris JOINERY PATTERNMAKER Unavailable Unavailable [place], Maris JOINERY PATTERNMAKER Unavailable Unavailable [place], Maris JOINERY PATTERNMAKER Unavailable Unavailable [place], Maris JOINERY PATTERNMAKER Unavailable Unavailable [place], Maris JOINERY PATTERNMAKER Unavailable Unavailable [place], Maris JOINERY PATTERNMAKER Unavailable Unavailable [place], Maris JOINERY PATTERNMAKER Unavailable Unavailable [place], Maris JOINERY PATTERNMAKER Unavailable Unavailable [place], Maris JOINERY PATTERNMAKER Unavailable Unavailable [place], Maris JOINERY PATTERNMAKER Unavailable Unavailable [place], Maris JOINERY PATTERNMAKER Unavailable Unavailable [place], Maris JOINERY PATTERNMAKER Unavailable Unavailable [place], Maris JOINERY PATTERNMAKER Unavailable Unavailable [place], Maris JOINERY PATTERNMAKER Unavailable Unavailable [place], Maris JOINERY PATTERNMAKER Unavailable Unavailable [place], Maris JOINERY PATTERNMAKER Unavailable Unavailable [place], Maris JOINERY PATTERNMAKER Unavailable Unavailable [place], Maris JOINERY PATTERNMAKER Unavailable Unavailable [place], Maris JOINERY PATTERNMAKER Unavailable Unavailable [place], Maris JOINERY PATTERNMAKER Unavailable Unavailable [place], Maris JOINERY PATTERNMAKER Unavailable Unavailable [place], Maris JOINERY PATTERNMAKER Unavailable Unavailable [place], Maris JOINERY PATTERNMAKER Unavailable Unavailable [place], Maris JOINERY PATTERNMAKER Unavailable Unavailable [place], Maris JOINERY PATTERNMAKER Unavailable Unavailable [place], Maris JOINERY PATTERNMAKER Unavailable Unavailable [place], Maris JOINERY PATTERNMAKER Unavailable Unavailable [place], Maris JOINERY PATTERNMAKER Unavailable Unavailable [place], Maris JOINERY PATTERNMAKER Unavailable Unavailable Kravec, Blaze JOINERY PATTERNMAKER Unavailable Unavailable Kra[place], Blaze JOINERY PATTERNMAKER Unavailable Unavailable Kravec, Blaze JOINERY PATTERNMAKER Unavailable Unavailable Kravec, Blaze JOINERY PATTERNMAKER Unavailable Unavailable Kravec, Blaze JOINERY PATTERNMAKER Unavailable Unavailable Kravec, Blaze JOINERY PATTERNMAKER Unavailable Unavailable Ray, L Jemma Unavailable Unavailable Ray, L Jemma Unavailable Unavailable Ray, L Jemma Unavailable Unavailable Ray, L Jemma Unavailable Unavailable Ray, L Jemma Unavailable Unavailable Ray, L Jemma Unavailable Unavailable Ray, L Jemma Unavailable Unavailable Ray, L Jemma Unavailable Unavailable Ray, L Jemma Unavailable Unavailable Ray, L Jemma Unavailable Unavailable Ray, L Jemma Unavailable Unavailable Ray, L Jemma Unavailable Unavailable Ray, L Jemma Unavailable Unavailable Ray, L Jemma Unavailable Unavailable Ray, L Jemma Unavailable Unavailable Ray, L Jemma Unavailable Unavailable Ray, L Jemma Unavailable Unavailable Ray, L Jemma Unavailable Unavailable Ray, L Jemma Unavailable Unavailable Ray, L Jemma Unavailable Unavailable Ray, L Jemma Unavailable Unavailable Ray, L Jemma Unavailable Unavailable Ray, L Jemma Unavailable Unavailable Ray, L Jemma Unavailable Unavailable Ray, L Jemma Unavailable Unavailable Ray, L Jemma Unavailable Unavailable Ray, L Jemma Unavailable Unavailable Ray, L Jemma Unavailable Unavailable Ray, L Jemma Unavailable Unavailable Ray, L Jemma Unavailable Unavailable Ray, L Jemma Unavailable Unavailable Ray, L Jemma Unavailable Unavailable Ray, L Jemma Unavailable Unavailable Ray, L Jemma Unavailable Unavailable Ray, L Jemma Unavailable Unavailable Ray, L Jemma Unavailable Unavailable Ray, L Jemma Unavailable Unavailable Ray, L Jemma Unavailable Unavailable Ray, L Jemma Unavailable Unavailable Ray, L Jemma Unavailable Unavailable Ray, L Jemma Unavailable Unavailable Ray, L Jemma Unavailable Unavailable Ray, L Jemma Unavailable Unavailable Ray, L Jemma Unavailable Unavailable Ray, L Jemma Unavailable Unavailable Ray, L Jemma Unavailable Unavailable Ray, L Jemma Unavailable Unavailable Ray, L Jemma Unavailable Unavailable Ray, L Jemma Unavailable Unavailable Ray, L Jemma Unavailable Unavailable Ray, L Jemma Unavailable Unavailable Ray, L Jemma Unavailable Unavailable Ray, L Jemma Unavailable Unavailable Ray, L Jemma Unavailable Unavailable Ray, L Jemma Unavailable Unavailable Ray, L Jemma Unavailable Unavailable Ray, L Jemma Unavailable Unavailable Ray, L Jemma Unavailable Unavailable Ray, L Jemma Unavailable Unavailable Ray, L Jemma Unavailable Unavailable Ray, L Jemma Unavailable Unavailable Ray, L Jemma Unavailable Unavailable Ray, L Jemma Unavailable Unavailable Ray, L Jemma Unavailable Unavailable Ray, L Jemma Unavailable Unavailable Ray, L Jemma Unavailable Unavailable Ray, L Jemma Unavailable Unavailable Ray, L Jemma Unavailable Unavailable Ray, L Jemma Unavailable Unavailable Ray, L Jemma Unavailable Unavailable Ray, L Jemma Unavailable Unavailable Ray, L Jemma Unavailable Unavailable Ray, L Jemma Unavailable Unavailable Ray, L Jemma Unavailable Unavailable Ray, L Jemma Unavailable Unavailable [place], J Nalini TOP TRIMMER Unavailable Unavailable [place], J Nalini TOP TRIMMER Unavailable Unavailable [place], J Nalini TOP TRIMMER Unavailable Unavailable [place], J Nalini TOP TRIMMER Unavailable Unavailable [place], J Nalini TOP TRIMMER Unavailable Unavailable [place], J Nalini TOP TRIMMER Unavailable Unavailable ALEXANDRO Wesley, Milvia Unavailable Ray, L Jemma Unavailable Unavailable Ray, L Jemma Unavailable Unavailable Ray, L Jemma Unavailable Unavailable Ray, L Jemma Unavailable Unavailable Ray, L Jemma Unavailable Unavailable Ray, L Jemma Unavailable Unavailable Ray, L Jemma Unavailable Unavailable Ray, L Jemma Unavailable Unavailable Ray, L Jemma Unavailable Unavailable Ray, L Jemma Unavailable Unavailable Ray, L Jemma Unavailable Unavailable Ray, L Jemma Unavailable Unavailable Ray, L Jemma Unavailable Unavailable Ray, L Jemma Unavailable Unavailable Ray, L Jemma Unavailable Unavailable Ray, L Jemma Unavailable Unavailable Ray, L Jemma Unavailable Unavailable Ray, L Jemma Unavailable Unavailable Ray, L Jemma Unavailable Unavailable Ray, L Jemma Unavailable Unavailable Ray, L Jemma Unavailable Unavailable Ray, L Jemma Unavailable Unavailable Ray, L Jemma Unavailable Unavailable Ray, L Jemma Unavailable Unavailable Ray, L Jemma Unavailable Unavailable Ray, L Jemma Unavailable Unavailable Ray, L Jemma Unavailable Unavailable Ray, L Jemma Unavailable Unavailable Ray, L Jemma Unavailable Unavailable Ray, L Jemma Unavailable Unavailable Ray, L Jemma Unavailable Unavailable Ray, L Jemma Unavailable Unavailable Ray, L Jemma Unavailable Unavailable Ray, L Jemma Unavailable Unavailable Ray, L Jemma Unavailable Unavailable Ray, L Jemma Unavailable Unavailable Ray, L Jemma Unavailable Unavailable Ray, L Jemma Unavailable Unavailable Ray, L Jemma Unavailable Unavailable Ray, L Jemma Unavailable Unavailable Ray, L Jemma Unavailable Unavailable Ray, L Jemma Unavailable Unavailable Ray, L Jemma Unavailable Unavailable Ray, L Jemma Unavailable Unavailable Ray, L Jemma Unavailable Unavailable Ray, L Jemma Unavailable Unavailable Ray, L Jemma Unavailable Unavailable Ray, L Jemma Unavailable Unavailable Ray, L Jemma Unavailable Unavailable Ray, L Jemma Unavailable Unavailable Ray, L Jemma Unavailable Unavailable Ray, L Jemma Unavailable Unavailable Ray, L Jemma Unavailable Unavailable Ray, L Jemma Unavailable Unavailable Ray, L Jemma Unavailable Unavailable Ray, L Jemma Unavailable Unavailable Ray, L Jemma Unavailable Unavailable Ray, L Jemma Unavailable Unavailable Ray, L Jemma Unavailable Unavailable Ray, L Jemma Unavailable Unavailable Ray, L Jemma Unavailable Unavailable Ray, L Jemma Unavailable Unavailable Ray, L Jemma Unavailable Unavailable Ray, L Jemma Unavailable Unavailable Ray, L Jemma Unavailable Unavailable Ray, L Jemma Unavailable Unavailable Ray, L Jemma Unavailable Unavailable Ray, L Jemma Unavailable Unavailable Ray, L Jemma Unavailable Unavailable Ray, L Jemma Unavailable Unavailable Ray, L Jemma Unavailable Unavailable Ray, L Jemma Unavailable Unavailable Ray, L Jemma Unavailable Unavailable Ray, L Jemma Unavailable Unavailable Ray, L Jemma Unavailable Unavailable Re-disclosure Warning The records that you are about to access may contain information from federally-assisted alcohol or drug abuse programs. If such information is present, then the following federally mandated warning applies: This information has been disclosed to you from records protected by federal confidentiality rules (42 CFR part 2). The federal rules prohibit you from making any further disclosure of this information unless further disclosure is expressly permitted by the written consent of the person to whom it pertains or as otherwise permitted by 42 CFR part 2. A general authorization for the release of medical or other information is NOT sufficient for this purpose. The Federal rules restrict any use of the information to criminally investigate or prosecute any alcohol or drug abuse patient.The records that you are about to access may contain highly sensitive health information, the redisclosure of which is protected by Article 27-F of the [facility] Public Health law. If you continue you may have access to information: Regarding HIV / AIDS; Provided by facilities licensed or operated by the [facility] Office of Mental Health; or Provided by the [facility] Office for People With Developmental Disabilities. If such information is present, then the following [facility] mandated warning applies: This information has been disclosed to you from confidential records which are protected by state law. State law prohibits you from making any further disclosure of this information without the specific written consent of the person to whom it pertains, or as otherwise permitted by law. Any unauthorized further disclosure in violation of state law may result in a fine or [place] [facility] sentence or both. A general authorization for the release of medical or other information is NOT sufficient authorization for further disc losure. 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 Status Observation Descr iption Data Source(s) packet given Pt Bill of Rights, Priv Prac, Ad Dir completed packet given Pt Bill of Rights, Priv Prac, Ad Dir [facility] Note: Pt declined AD packet Family History Family Member Name Family Member Gender Family Member Status Date o f Status Description Data Source(s) Unknown Male Problem [facility] ([facility]) Encounters Encounter Providers Location Date Indications Data Source(s ) <td ID="encounterTypeDescriptionID0">[place] Update</td><td>Milvia Wesley RN</td><td></td><td>07/13/2021</td><td>1:47PM</td><td>11:59PM</td><td></td>Unkno Attender: Milvia Wesley RN 07/13/2021 01 :47:00 PM EDT - 07/13/2021 11:59:00 PM EDT [facility] ([facility]) Outpatient Attender: Rashida Walker [facility] Main Office 06/17/2021 09:45:00 AM EDT [facility] ([facility] Pract itioners) <td ID="encounterTypeDescriptionID0">Tel ephonic Encounter</td><td>Maxim Emmanuel NP</td><td>[facility]</td><td>06/08/2021</td><td>10:00AM</td><td>10:40AM</td><td><content ID="encounterDiagnosisID0-0">Allergic Rhinitis</content>, <content ID="encounterDiagnosisID0-1">Hypertension (Systemic)</content>, <content ID="encounterDiagnosisID0-2">Chalazion Right Eyelid</content></td>Outpatient Attender: Maxim Emmanuel [facility] 06/08/2021 10:00:00 AM EDT - 06/08/2021 10:40:56 AM EDT Chalazion Right EyelidAllergic RhinitisH ypertension (Systemic) [facility] ([facility]) Chalazion Right Eyelid Allergic Rhinitis Hypertension (Systemic) Outpatient Attender: Maxim Emmanuel [facility] 06/04/2021 09:58:00 AM EDT [facility] <td ID="encounterTypeDescriptionID0">[facility]HR </td><td>Maxim Emmanuel TOP TRIMMER</td><td>[facility]</td><td>05/27/2021</td><td>7:51AM</td><td>9:39AM</td><td><content ID="encounterDiagnosisID0-0">Routine History and Physical</content>, <content ID="encounterDiagnosisID0-1">Hypertension (Systemic)</content>, <content ID="encounterDiagnosisID0-2">Hyperlipidemia</content>, <content ID="encounterDiagnosisID0-3">Generalized Anxiety Disorder</content>, <content ID="encounterDiagnosisID0-4">Allergic Rhinitis</content>, <content ID="encounterDiagnosisID0-5">Intervertebral Disc Degeneration - Lumbar</content>, <content ID="encounterDiagnosisID0-6">Chalazion Right Eyelid</content></td>Unknown Attender: Maxim Emmanuel [facility] 05/27/2021 07:51:00 AM EDT - 05/27/2021 09:39:20 AM EDT Chalazion Right EyelidRoutine History and PhysicalGeneralized Anxiety DisorderIntervertebral Disc Degeneration - LumbarAllergic RhinitisHypertension (Systemic)Hyperlipidemia [facility] ([facility]) Chalazion Right Eyelid Routine History and Physical Generalized Anxiety Disorder Intervertebral Disc Degeneration - Lumba r Allergic Rhinitis Hypertension (Systemic) Hyperlipidemia Outpatient Attender: Jemma Hector 05/19/2021 09:22:00 AM EDT Lab [facility] Lab Outpatient<td ID="encounterTypeDescripti onID0">Acute L3</td><td>Nalini Zavala NP</td><td>[facility]</td><td>03/17/2021</td><td>11:05AM</td><td>11:58AM</td><td><content ID="encounterDiagnosisID0-0">Assessment of Conjunctivitis</content>, <content ID="encounterDiagnosisID0-1">Intervertebral Disc Degeneration - Lumbar</content></td> Attender: Nalini Zavala NP [facility] 11:05:00 AM EDT - 03/17/2021 11:58:24 AM EDT Assessment of ConjunctivitisIntervertebral Disc Degeneration - Lumbar [facility] ([facility]) Assessment of Conjunctivitis Intervertebral Disc Degeneration - Lumba r Outpatient Attender: Nalini Zavala NP 02/22/2021 02:06:0 0 PM EDT Xray [facility] Xray Outpatient<td ID="encounterTypeDescripti onID0">Acute L3</td><td>Nalini Zavala NP</td><td>[facility]</td><td>02/22/2021</td><td>12:40PM</td><td>2:07PM</td><td><content ID="encounterDiagnosisID0-0">Assessment of Arthralgia - Knee / Patella / Tibia / Fibula Right</content></td> Attender: Nalini Zavala NP [facility] 02/22/2021 12:40:00 PM EDT - 02/22/2021 02:07:35 PM EDT Assessment of Arthralgia - Knee / Patella / Tibia / Fibula Right [facility] ([facility]) Assessment of Arthralgia - Knee / Patell a / Tibia / Fibula Right <td ID="encounterTypeDescriptionID0">COV ID 19 IMM</td><td>Lotus Vasquez RN</td><td>[facility]</td><td>01/15/2021</td><td>5:28PM</td><td>11:59PM</td><td></td>Outpatien t Attender: Evie Gresham RN [facility] 01/15/2021 05 :28:00 PM EDT - 01/15/2021 11:59:00 PM EDT [facility] ([facility]) Outpatient<td ID="encounterTypeDescripti onID0">COVID 19 IMM</td><td>Lotus Vasquez RN</td><td>[facility]</td><td>12/18/2020</td><td>5:44PM</td><td>6:56PM</td><td></td> Attender: Evie Gresham RN [facility] 12/18/2020 05:44:00 PM EST - 12/18/2020 06:56:00 PM EST [facility] ([facility]) <td ID="encounterTypeDescriptionID1">Chr onic Disease Follow-up</td><td>Jemma Hector DO</td><td>[facility]</td><td>11/18/2020</td><td>8:26AM</td><td>9:25AM</td><td><content ID="encounterDiagnosisID1-0">Generalized Anxiety Disorder</content>, <content ID="encounterDiagnosisID1-1">Hyperlipidemia</content>, <content ID="encounterDiagnosisID1-2">Hypertension (Systemic)</content>, <content ID="encounterDiagnosisID1-3">Trigeminal Neuralgia</content>, <content ID="encounterDiagnosisID1-4">Hyponatremia</content>, <content ID="encounterDiagnosisID1-5">Colon Screening</content></td>Outpatient Attender: Jemma Hector [facility] 11/18/2020 08:26:00 AM EST - 11/18/2020 09:25:56 AM EST HyponatremiaGeneralized Anxiety Disorder Hypertension (Systemic)Colon ScreeningHyperlipidemiaTrigeminal Neuralgia [facility] ([facility]) Hyponatremia Generalized Anxiety Disorder Hypertension (Systemic) Colon Screening Hyperlipidemia Trigeminal Neuralgia Outpatient Attender: Jemma Krunal 11/09/2020 10:57:00 AM EST lab 1 of 1 [facility] lab 1 of 1 Outpatient<td ID="encounterTypeDescripti onID3">Acute Follow-up Telephonic</td><td>Evie Buchanan NP</td><td>[facility]</td><td>09/10/2020</td><td>05/21/2020 2:40PM</td><td>2:21PM</td><td> <content ID="encounterDiagnosisID3-0">Sinusitis Acute</content>, <content ID="encounterDiagnosisID3-1">Hypertension (Systemic)</content></td> Attender: EVIE BUCHANAN NP [facility] 09/10/2020 02:40:00 PM EST - 09/10/2020 02:21:04 PM EST Sinusitis AcuteSinusitis AcuteHypertensi on (Systemic)Hypertension (systemic) [facility] ([facility]) Sinusitis Acute Sinusitis Acute Hypertension (Systemic) Hypertension (systemic) Outpatient Attender: EVIE BUCHANAN NP 09/07/2020 1 1:49:00 PM EST [facility] Safety Techn[facility] Outpatient<td ID="encounterTypeDescripti onID4">Acute L1</td><td>Evie Buchanan NP</td><td>[facility]</td><td>09/07/2020</td><td>05/21/2020 2:30PM</td><td>4:21PM</td><td><content ID="encounterDiagnosisID4-0">Pharyngitis Acute</content>, <content ID="encounterDiagnosisID4-1">Cough</content>, <content ID="encounterDiagnosisID4-2">Sinusitis Acute</content>, <content ID="encounterDiagnosisID4-3">Hypertension (Systemic)</content></td> Attender: EVIE BUCHANAN [facility] 09/07/2020 02:30:00 PM EST - 09/07/2020 04:21:37 PM EST Sinusitis AcuteCoughPharyngitis AcuteSin usitis AcuteCoughPharyngitis AcuteSinusitis AcuteCoughPharyngitis AcuteHypertension (Systemic)Hypertension (systemic)Hypertension (systemic) [facility] ([facility]) Sinusitis Acute Cough Pharyngitis Acute Sinusitis Acute Cough Pharyngitis Acute Sinusitis Acute Cough Pharyngitis Acute Hypertension (Systemic) Hypertension (systemic) Hypertension (systemic) <td ID="encounterTypeDescriptionID5">Cor respondence</td><td>Jemma Ferrera Ray DO</td><td></td><td>07/21/2020</td><td>05/21/2020 4:59PM</td><td>05/21/2020 11:59PM</td><td></td>Unknown Attender: Jemma Hector 07/21/2020 04:59:00 PM EDT - 05/21/2020 11:59:00 PM EDT [facility]) <td ID="encounterTypeDescriptionID6">Lab Order</td><td>Jemma Ferrera Ray DO</td><td></td><td>07/20/2020</td><td>05/21/2020 8:59AM</td><td>05/21/2020 11:59PM</td><td></td>Obstetrics Attender: Jemma Hector 020 08:59:00 AM EDT - 05/21/2020 11:59:00 PM EDT [facility] ) <td ID="encounterTypeDescriptionID2">Cor respondence</td><td>Jemma Ferrera Ray DO</td><td></td><td>11/10/2020</td><td>05/21/2020 11:43AM</td><td>09/10/2020 11:59PM</td><td></td>Unknown Attender: Jemma Krunal 05/21/2020 11:43:00 AM EDT - 09/10/2020 11:59:00 PM EST [facility]) Immunizations Vaccine Date Status Description Data Source(s) Tdap 05/27/2021 09:40:00 AM EDT completed <td ID="Frjbyclsmhnit-Yykpyvvfpci-OL2">Boostrix</td><td ID="ImmunizationDose- 0">2</td><td>05/27/2021</td><td ID="Qbfcadrfkncds-XgzbnOrbm-VQ2">Left Deltoid</td><td></td><td ID="Fofarkldkbcje-Rckiua-CO4">Complete (Administered)</td><td>[facility]</td><td ID="Qizgblriropim-Unhnq-Lead-Comment-ID0"></td> [facility] ([facility]) Arielaa COVID-19 01/15/2021 05:41:00 PM EDT completed <td ID="Oksojnhbthvuv-Swpwotfmziq-JU8">Moderna COVID-</td><td ID="ImmunizationDose-0">2</td><td>01/15/2021</td><td ID="Bthnwhivcvlkz-AeorlWnzq-KA5">Left Deltoid</td><td></td><td ID="Jktszhkssuqhg-Ljcoja-LY1">Complete (Administered)</td><td>[facility]</td><td ID="Yxswvsypxpqts-Okvcw-Mery-Comment-ID0"></td> [facility] ([facility]) Note: Administered by LKimballLPN COVID-19 VACCINE a 01/15/2021 12:00:00 AM EDT completed [employer] Vaccine Series Complete: YESThis Data wa s Submitted to [facility] Via [employer]. Moderna COVID-19 12/18/2020 06:59:00 PM EST completed <td ID="Blpzawsgksohg-Tlojiotuqyn-AG48">Moderna COVID-19</td><td ID="ImmunizationDose-11">1</td><td>12/18/2020</td><td ID="Gftjsyuixaoap-RiwxcWtzv-OM16">Left Deltoid</td><td></td><td ID="Hkeqayonqfjuy-Dhfvpj-UL14">Complete (Administered)</td><td>[facility]</td><td ID="Mowvacwtgiwqn-Lylje-Icbt-Comment-ID11"></td> [facility] ([facility]) Note: Administered by Patricia. COVID-19 VACCINE Moderna 12/18/2020 12:00:00 AM EST completed [employer] Vaccine Series Complete: NOThis Data was Submitted to [facility] Via [employer]. INFLUENZA VIRUS VACCINE QUADRIVAL SPLIT 2019-(65 YR UP)/PF 07/20/2020 12:00:00 AM EDT completed [facility] Medications Medication Brand Name Start Date Product Form Dose Route Admi nistrative Instructions Pharmacy Instructions Status Indications Reaction Description Data Source(s) Pravastatin Sodium 10 MG Oral Tablet Pravastatin Sodium 10 M G Oral Tablet 06/22/2021 12:00:00 AM EDT active pravastatin sodium 10 MG Oral Tablet [facility] EQ Loratadine 10 MG Oral Tablet EQ Loratadine 10 MG Oral Tab let 06/08/2021 12:00:00 AM EDT 1 active EQ Lorat adine [facility] ([facility]) Hydrochlorothiazide 25 MG / Triamterene 37.5 MG Oral T ablet 37.5-25 mg TRIAMTERENE/HYDROCHLOROTHIAZID 05/28/2021 12:00:00 AM EDT tablet 90 TAKE ONE TABLET BY MOUTH ONCE A DAY TAKE ONE TABLET BY MOUTH ONCE A DAY SOLD: 05/29/2021 [facility] Fluticasone propionate 0.05 MG/ACTUAT Metered Dose Brett al Holcomb 50 mcg/actuation FLUTICASONE PROPIONATE 05/28/2021 12:00:00 AM EDT spray,suspension 16 SPRAY 2 SPRAYS IN EACH NOSTRIL DAILY SPRAY 2 SPRAYS IN EACH NOSTRIL DAILY SOLD: 05/29/2021 [facility] 500 unit/gram 05/28/2021 12:00:00 AM EDT ointment 3 APPLY TO AFFECTED EYE THREE TIMES A DAY UNTIL CLEARED APPLY TO AFFECTED EYE THREE TIMES A DAY UNTIL CLEARED SOLD: 05/29/2021 [facility] Bacitracin 0.5 UNT/MG Ophthalmic Ointmen t Bacitracin 500 UNIT/GM Ophthalmic Ointment Bacitracin 500 UNIT/GM Ophthalmic Ointment 05/27/2021 12:00: 00 AM EDT aborted bacitracin 0.5 U NT/MG Ophthalmic Ointment [facility] ([facility]) Losartan Potassium 25 MG Oral Tablet Losartan Potassium 25 M G Oral Tablet 05/27/2021 12:00:00 AM EDT 1 active losartan potassium 25 MG Oral Tablet [facility] ([facility]) 24 HR metoprolol succinate 50 MG Extende d Release Oral Tablet Metoprolol Succinate ER 50 MG Oral Tablet Extended Release 24 Hour Metoprolol Succinate ER 50 MG Oral Tablet Extended Release 24 Hour 05/27/2021 12:00:00 AM EDT 1 active 24 HR metoprolol succinate 50 MG Extended Release Oral Tablet [facility] ([facility]) [facility] Flut[facility]asone Propionate 50 MCG/ACT Nasal Suspension [facility] Fluticasone Propionate 50 MCG/ACT Nasal Suspension 05/27/2021 12:00:00 AM EDT active [facility] Fluticasone Propionate [facility] ([facility]) Hydrochlorothiazide 25 MG / Triamterene 37.5 MG Oral Tablet [Maxzide] Maxzide-25 37.5-25 MG Oral Tablet Maxzide-25 37.5-25 MG Oral Tablet 05/27/2021 12:00:00 AM EDT 1 active hydrochl orothiazide 25 MG / triamterene 37.5 MG Oral Tablet [Maxzide] [facility] ([facility]) gabapentin 100 MG Oral Capsule Gabapentin 100 MG Oral Capsule Gabapentin 100 MG Oral Capsule 05/27/2021 12:00:00 AM EDT 1 activ e gabapentin 100 MG Oral Capsule [facility] ([facility]) Sertraline 50 MG Oral Tablet [Zoloft] Zoloft 50 MG Ora l Tablet Zoloft 50 MG Oral Tablet 05/27/2021 12:00:00 AM EDT 1 active sertraline 50 MG Oral Tablet [Zoloft] [facility] ([facility]) Bisacodyl 5 MG Delayed Release Oral Tablet [Dulcolax] Dulcol ax 05/04/2021 12:00:00 AM EDT ORAL active [facility] ([facility], ) Sutab Sutab 05/04/2021 12:00:00 AM EDT active [facility] ([facility], ) 1.479-0.188- 0.225 gram 05/04/2021 12:00:00 AM EDT tablet 24 TAKE TABLETS BY MOUTH DIRECTED PER DOCTOR FOR BOWEL PREP TAKE TABLETS BY MOUTH DIRECTED PER DOCTOR FOR BOWEL PREP SOLD: 05/06/2021 [facility] 5 mg/gram (0.5 %) 03/17/2021 12:00:00 AM EDT ointment 3 APPLY 1 CM RIBBON OINTMENT INTO AFFECTED EYE FOUR TIMES A DAY FOR 7 DAYS APPLY 1 CM RIBBON OINTMENT INTO AFFECTED EYE FOUR TIMES A DAY FOR 7 DAYS SOLD: 03/18/2021 [facility] Erythromycin 0.005 MG/MG Ophthalmic Oint ment Erythromycin 5 MG/GM Ophthalmic Ointment Erythromycin 5 MG/GM Ophthalmic Ointment 03/17/2021 12:00:00 AM EDT 1 active erythromycin 0.005 MG/MG Ophthalmic Ointment [facility] ([facility]) Pravastatin Sodium 10 MG Oral Tablet Pravastatin Sodium 10 M G Oral Tablet 11/18/2020 12:00:00 AM EST active pravastatin sodium 10 MG Oral Tablet [facility] ([facility]) Losartan Potassium 25 MG Oral Tablet Losartan Potassium 25 M G Oral Tablet 11/18/2020 12:00:00 AM EST 1 active losartan potassium 25 MG Oral Tablet [facility] ([facility]) Sertraline 50 MG Oral Tablet [Zoloft] Zoloft 50 MG Ora l Tablet Zoloft 50 MG Oral Tablet 11/18/2020 12:00:00 AM EST 1 active sertraline 50 MG Oral Tablet [Zoloft] [facility] ([facility]) Hydrochlorothiazide 25 MG / Triamterene 37.5 MG Oral Tablet [Maxzide] Maxzide-25 37.5-25 MG Oral Tablet Maxzide-25 37.5-25 MG Oral Tablet 11/18/2020 12:00:00 AM EST 1 active hydrochl orothiazide 25 MG / triamterene 37.5 MG Oral Tablet [Maxzide] [facility] ([facility]) 24 HR metoprolol succinate 50 MG Extende d Release Oral Tablet Metoprolol Succinate ER 50 MG Oral Tablet Extended Release 24 Hour Metoprolol Succinate ER 50 MG Oral Tablet Extended Release 24 Hour 11/18/2020 12:00:00 AM EST 1 active 24 HR metoprolol succinate 50 MG Extended Release Oral Tablet [facility] ([facility]) 0.005 % 10/28/2020 12:00:00 AM EST ointment 15 APPLY UNDER BREASTS SPARINGLY TWO TIMES A DAY FOR 1 WEEK THEN NEEDED ITCHING APPLY UNDER BREASTS SPARINGLY TWO TIMES A DAY FOR 1 WEEK THEN NEEDED ITCHING SOLD: 10/29/2020 [facility] 100 mg 09/16/2020 12:00:00 AM EST capsule 270 TAKE ONE CAPSULE BY MOUTH THREE TIMES A DAY TAKE ONE CAPSULE BY MOUTH THREE TIMES A DAY SOLD: 09/16/2020 [facility] gabapentin 100 MG Oral Capsule Gabapentin 100 MG Oral Capsule Gabapentin 100 MG Oral Capsule 09/16/2020 12:00:00 AM EST 1 activ e gabapentin 100 MG Oral Capsule [facility] ([facility]) Amoxicillin 875 MG / Clavulanate 125 MG Oral Tablet Amoxicillin-Pot Clavulanate 875-125 MG Oral Tablet Amoxicillin-Pot Clavulanate 875-125 MG Oral Tablet 09/07/2020 12:00:00 AM EST 1 aborted amoxicillin 875 MG / clavulanate 125 MG Oral Tablet [facility] ([facility]) Loratadine 10 MG Oral Tablet Loratadine 10 MG Oral Tablet 12:00:00 AM EST 1 active loratadine 10 MG Oral Tablet [facility] ([facility]) 10 mg 09/07/2020 12:00:00 AM EST tablet 30 TAKE ONE TABLET BY MOUTH EVERY DAY TAKE ONE TABLET BY MOUTH EVERY DAY SOLD: 09/07/2020 [facility] 875-125 mg 09/07/2020 12:00:00 AM EST tablet 20 TAKE ONE TABLET BY MOUTH TWICE A DAY TAKE ONE TABLET BY MOUTH TWICE A DAY SOLD: 09/07/2020 [facility] gabapentin 100 MG Oral Capsule Gabapentin 100 MG Oral Capsule Gabapentin 100 MG Oral Capsule 08/31/2020 12:00:00 AM EST 1 abort ed gabapentin 100 MG Oral Capsule [facility] ([facility]) Fluocinolone Acetonide 0.1 MG/ML Topical Oil [Rosine-Sm oothe FS] Rosine-Smoothe/FS Scalp 06/17/2020 12:00:00 AM EDT active [facility] ([facility]) 0.01 % 06/17/2020 12:00:00 AM EDT oil 118 APPLY TO SCALP WITH OCCLUSION AT BEDTIME THEN SHAMPOO OUT IN THE MORNING EVERY DAY UNTIL CLEAR THEN NEEDED APPLY TO SCALP WITH OCCLUSION AT BEDTIME THEN SHAMPOO OUT IN THE MORNING EVERY DAY UNTIL CLEAR THEN NEEDED SOLD: 06/17/2020 [facility] 24 HR metoprolol succinate 50 MG Extende d Release Oral Tablet Metoprolol Succinate ER 50 MG Oral Tablet Extended Release 24 Hour Metoprolol Succinate ER 50 MG Oral Tablet Extended Release 24 Hour 05/21/2020 12:00:00 AM EDT 1 aborted 24 HR metoprolol succinate 50 MG Extended Release Oral Tablet [facility] ([facility]) Pravastatin Sodium 10 MG Oral Tablet Pravastatin Sodium 10 M G Oral Tablet 05/21/2020 12:00:00 AM EDT aborted pravastatin sodium 10 MG Oral Tablet [facility] Losartan Potassium 25 MG Oral Tablet Losartan Potassium 25 M G Oral Tablet 05/21/2020 12:00:00 AM EDT 1 aborted losartan potassium 25 MG Oral Tablet [facility] ([facility]) Hydrochlorothiazide 25 MG / Triamterene 37.5 MG Oral Tablet [Maxzide] Maxzide-25 37.5-25 MG Oral Tablet Maxzide-25 37.5-25 MG Oral Tablet 05/21/2020 12:00:00 AM EDT 1 aborted hydrochl orothiazide 25 MG / triamterene 37.5 MG Oral Tablet [Maxzide] [facility] ([facility]) meloxicam 15 MG Oral Tablet Meloxicam 15 MG Oral Table t Meloxicam 15 MG Oral Tablet 05/21/2020 12:00:00 AM EDT 1 aborted meloxicam 15 MG Oral Tablet [facility] ([facility]) Sertraline 50 MG Oral Tablet [Zoloft] Zoloft 50 MG Ora l Tablet Zoloft 50 MG Oral Tablet 11/13/2019 12:00:00 AM EST 1 aborted sertraline 50 MG Oral Tablet [Zoloft] [facility] ([facility]) gabapentin 100 MG Oral Capsule Gabapentin 100MG Oral C apsule Gabapentin 100MG Oral Capsule 05/01/2019 12:00:00 AM EDT 1 abort ed gabapentin 100 MG Oral Capsule [facility] ([facility]) meloxicam 15 MG Oral Tablet Meloxicam 15MG Oral Tablet Meloxicam 15MG Oral Tablet 10/22/2018 12:00:00 AM EST 1 aborted meloxicam 15 MG Oral Tablet [facility] ([facility]) Insurance Providers Payer name Policy type / Coverage type Policy ID Covered constitution party ID Covered constitution party's relationship to macario Policy Macario Plan Information [employer] [id number] SP [id number] [employer] [id number] SP [id number] [employer] [id number] SP [id number] [employer] Other [id number] Self [id number] [employer]OMCO Other [id number] Self [id number] [employer] Other [id number] Self [id number] [employer] Other [id number] Self [id number] [employer] Other [id number] Self [id number] [employer] Other [id number] Self [id number] [employer] Other [id number] Self 910 [employer]OM[employer] Other [id number] Self POMCO Other [id number] Self [id number] [place] Other 0 [id number] Self 0 [place] Other 0 [id number] Self 0 Medicare C [id number] SELF [id number] DME Jurisdiction A AKIC C [id number] SELF [id number] MEDICARE [id number] SP [id number] A [place] Other 0 [id number] Self 0 [place] Other 0 [id number] Self 0 [place] Other 0 [id number] Self 0 Medicare [place] Other 0 [id number] Self 0 [place] Other [id number] Self [place] Other 0 [id number] Self 0 [place] Other 0 [id number] Self 0 [place] Other 0 [id number] Self 0 Medicare [place] Other 0 [id number] Self 0 [place] Other 0 [id number] Self 0 [place] Other 0 [id number] Self 0 [place] Other 0 [id number] Self 0 Medicare [place] Other 0 [id number] Self 0 [place] Other 0 [id number] Self 0 [place] Other 0 [id number] Self 0 [place] Other 0 [id number] Self 0 [place] Other 0 [id number] Self 0 MEDICARE [id number] SP [id number] A Medicare [place] Other 0 [id number] Self 0 [place] Other 0 [id number] Self 0 [place] Other 0 [id number] Self 0 [place] Other 0 [id number] Self 0 [place] Other 0 [id number] Self 0 Medicare [place] Other 0 [id number] Self 0 Medicare C [id number] SELF [id number] A [facility] Jurisdiction A NHIC C [id number] SELF [id number] Medicare [place] Other 0 [id number] Self 0 Medicare [place] Other 0 [id number] Self 0 [place] Other 0 [id number] Self 0 Medicare [place] Other 0 [id number] Self 0 Medicare [place] Other 0 [id number] Self 0 Medicare [place] Other 0 [id number] Self 0 Medicare [place] Other 0 [id number] Self 0 Medicare [place] Other 0 [id number] Self 0 MEDICARE [id number] SP [id number] Medicare [place] of [place] Other 0 [id number] Self 0 [employer] (pr) Medigap Part B [id number] Self [id number] [place] Primary [id number] Self [id number] [employer] Other 0 [id number] Self 0 [employer] Other 0 [id number] Self 0 [employer] Other 0 [id number] Self 0 [employer] Other 0 [id number] Self 0 [employer] Other 0 [id number] Self 0 [employer] Other 0 [id number] Self 0 [employer] Other 0 [id number] Self 0 [employer] Other 0 [id number] Self 0 [employer] Other 0 [id number] Self 0 [employer] Other 0 [id number] Self 0 [employer] Other 0 [id number] Self 0 [employer] Other 0 [id number] Self 0 [employer] Other 0 [id number] Self 0 [employer] Other 0 [id number] Self 0 [employer] Other 0 [id number] Self 0 [employer] Other 0 [id number] Self 0 [employer] Other 0 [id number] Self 0 [employer] Other 0 [id number] Self 0 [employer] Other 0 [id number] Self 0 [employer] Other 0 [id number] Self 0 [employer] Other 0 [id number] Self 0 [employer] Other 0 [id number] Self 0 [employer] Other 0 [id number] Self 0 [employer] Other 0 [id number] Self 0 [employer] Other 0 [id number] Self 0 UMR F [id number] SELF [id number] Medicare C [id number] SELF [id number] A UMR F [id number] SELF [id number] UMR F [id number] SELF [id number] DME Jurisdiction A AKIC C [id number] SELF [id number] SELF PAY POMCO INDEMNITY [id number] SP [id number] MEDICARE [id number] SP [id number] A UMR [id number] SP [id number] MEDICARE [id number] SP [id number] A SELF PAY UMR [id number] SP [id number] MEDICARE [id number] SP [id number] SELF PAY UMR [id number] SP [id number] SELF PAY UMR [id number] SP [id number] MEDICARE [id number] SP [id number] UMR [id number] SP [id number] MEDICARE [id number] SP [id number] SELF PAY UMR [id number] SP [id number] MEDICARE [id number] SP [id number] SELF PAY UMR [id number] SP [id number] MEDICARE [id number] SP [id number] SELF PAY UMR [id number] SP [id number] SELF PAY MEDICARE [id number] SP [id number] SELF PAY MEDICARE [id number] SP [id number] UMR [id number] SP [id number] UMR [id number] SP [id number] MEDICARE [id number] SP [id number] SELF PAY UMR [id number] SP [id number] SELF PAY MEDICARE [id number] SP [id number] SELF PAY MEDICARE [id number] SP [id number] UMR [id number] SP [id number] MEDICARE C [id number] S [id number] A MEDICARE C [id number] S [id number] A [employer] Medigap Part B [id number] Self Medicare [facility] Medicare Primary [id number] Self UMR [facility] [id number] SP [id number] UMR O [id number] S [id number] [employer] PPO O [id number] S [id number] Problems, Conditions, and Diagnoses Code Display Name Description Problem Type Effective Dates Data Source(s) H00.13 Chalazion right eye, unspecified eyelid H00.13 - Chalazion right eye, unspecified eyelid Diagnosis 06/04/2021 09:58:00 AM EDT [facility] G25.2 Other specified forms of tremor G25.2 - Other sp ecified forms of tremor Diagnosis 05/19/2021 09:22:00 AM EDT [facility] E55.9 Vitamin D deficiency, unspecified E55.9 - Vitamin D deficiency, unspecified Diagnosis 11/09/2020 10:57:00 AM [facility] R05 Cough R05 - Cough Diagnosis 09/07/2020 11:49:00 PM E [facility] R07.0 Pain in throat R07.0 - Pain in throat Diagnosis 11:49:00 PM [facility] Surgeries/Procedures Procedure Description Date Indications Data Source(s) Shave Biopsy Of Skin, Single Lesion 06/17/2021 12:00:0 0 AM EDT [facility] ([facility]) Each Separate/Additional Lesion 06/17/2021 12:00:00 AM EDT [facility] ([facility]) OFFICE OUTPATIENT VISIT 25 MINUTES 06/17/2021 12:00:00 AM EDT [facility] ([facility]) Surgical / procedural history Tubal Ligation ~Mass re moved from you trachea Surgical / procedural history Tubal Ligation ~Mass removed from you trachea 06/08/2021 12:00:00 AM EDT [facility] ([facility]) Summary provided electronically in CCDA format & reasonable certainty of receipt 06/08/2021 12:00:00 AM EDT - 06/08/2021 12:00:00 AM EDT [facility] ([facility]) Clinical summary provided to patient 12:00:00 AM EDT - 06/08/2021 12:00:00 AM EDT [facility] ([facility]) counseling and coordination of care was more than 50% of encounter time see problem list, issues of which were discussed with patient 06/08/2021 12:00:00 AM EDT - 06/08/2021 12:00:00 AM EDT [facility] ([facility]) total face to face time 06/08/2021 12:00 :00 AM EDT - 06/08/2021 12:00:00 AM EDT [facility] ([facility]) Transition in care medication list update 06/08/2021 12:00:00 AM EDT - 06/08/2021 12:00:00 AM EDT [facility] ([facility]) Surgical / procedural history Tubal Ligation ~Mass re moved from you trachea Surgical / procedural history Tubal Ligation ~Mass removed from you trachea 05/27/2021 12:00:00 AM EDT [facility] ([facility]) Summary provided electronically in CCDA format & reasonable certainty of receipt 05/27/2021 12:00:00 AM EDT - 05/27/2021 12:00:00 AM EDT [facility] Clinical summary provided to patient 02/2021 12:00:00 AM EDT - 05/27/2021 12:00:00 AM EDT [facility] ([facility]) medical regimen review 05/27/2021 12:00: 00 AM EDT - 05/27/2021 12:00:00 AM EDT [facility] Transition in care medication list update 05/27/2021 12:00:00 AM EDT - 05/27/2021 12:00:00 AM EDT [facility] continue current medication unless otherwise stated 05/27/2021 12:00:00 AM EDT - 05/27/2021 12:00:00 AM EDT [facility] Tdap, Tetanus, Diphtheria Toxoids and Acellular Pertus sis Va Tdap, Tetanus, Diphtheria Toxoids and Acellular Pertussis Va 05/27/2021 12:00:00 AM EDT [facility] records management 05/25/2021 - Chart Prep Performed 05/25/2021 12:00:00 AM EDT - 05/25/2021 12:00:00 AM EDT [facility] ([facility] ) Summary provided electronically in CCDA format & reasonable certainty of receipt 03/17/2021 12:00:00 AM EDT - 03/17/2021 12:00:00 AM EDT [facility] ([facility]) Summary provided electronically in CCDA format & reasonable certainty of receipt 02/22/2021 12:00:00 AM EDT - 02/22/2021 12:00:00 AM EDT [facility] ([facility]) Transition in care medication list update 02/22/2021 12:00:00 AM EDT - 02/22/2021 12:00:00 AM EDT [facility] ([facility]) Moderna COVID19 Vaccine Administration Second Dose Mod dariusz COVID19 Vaccine Administration Second Dose 01/15/2021 12:00:00 AM EDT [facility]) Moderna COVID-19 Vaccine Moderna COVID-19 Vaccine 01/15/2021 12:00: 00 AM EDT [facility] ([facility]) Moderna COVID-19 Vaccine Moderna COVID-19 Vaccine 12/18/2020 12:00: 00 AM EST [facility] ([facility]) [facility] (fq) visit, established patient; a medically-necessary, gpbs-mw-ueie encounter (one-on-one) between an established patient and a fq practitioner during which time one or more fqhc services are rendered and includes a typical bundle of medicare-covered services that would be furnished twisting press operator to a patient receiving a fqhc visit FQHC Visit, established patient 11/18/2020 12:00:00 AM EST [facility] ([facility] [employer]) RHC/FQHC code for distant site telehealt h services (Synchronous telemedicine service rendered via real-time interactive audio and video telecommunication system) RHC/FQHC code for distant site telehealt h services (Synchronous telemedicine service rendered via real-time interactive audio and video telecommunication system) 09/10/2020 12:00:00 AM EST [facility] ([facility]) [facility] (fq) visit, established patient; a medically-necessary, ivqa-ua-ltup encounter (one-on-one) between an established patient and a fq practitioner during which time one or more fq services are rendered and includes a typical bundle of medicare-covered services that would be furnished twisting press operator to a patient receiving a fqhc visit FQHC Visit, established patient 09/07/2020 12:00:00 AM EST [facility] ([facility]) Rapid Strep Test Rapid Strep Test 09/07/2020 12:00:00 AM EST [facility] ([facility]) Rapid Strep Test Rapid Strep Test 09/07/2020 12:00:00 AM EST [facility] ([facility]) Results ID Date Data Source [id number] 06/17/2021 10:01:00 AM EDT [facility] ([facility]) Name Value Range Interpretation Code Description Data Remedios rce(s) Supporting Document(s) Laboratory test finding (navigational concept) Laboratory test result [facility] ([facility]) A. No further treatment necessary B. L N2 any remaining Laboratory test finding (navigational concept) Laboratory test result [facility] ([facility]) A. No further treatment necessary B. L N2 any remaining ID Date Data Source [id number] 06/04/2021 01:53:00 PM EDT [facility] Name Value Range Interpretation Code Description Data Remedios rce(s) Supporting Document(s) SODIUM 132 MEQ/L 135-145 L [facility] POTASSIUM 4.2 MEQ/L 3.5-5.3 [facility] CHLORIDE 94 MEQ/L 94-110 N [facility] CARBON DIOXIDE 31 MEQ/L 22-33 [facility] ANION GAP 11 5-16 N [facility] BLOOD UREA NITRO 21 MG/DL 7-25 N [facility] CREATININE 1.0 MG/DL 0.6-1.4 [facility] GFR 54.1 ML/MIN [facility] Stage G3a - Mildly to moderately decrea sed kidney function The GFR is an estimate of the Glomerular Filtration Rate. It is an aid to assess a patient's renal function. It is not a conclusive diagnosis of kidney disease. GFR normal is >=90 The MDRD GFR calculation is considered valid between the ages of 18 and 75 years only. BUN/CREAT RATIO 21 8-36 [facility] GLUCOSE 89 MG/DL 70-100 [facility] CA 9.7 MG/DL 8.7-10.5 [facility] BILIRUBIN,TOTAL 0.5 MG/DL 0.1-1.3 [facility] AST 25 U/L 5-40 [facility] ALT 22 U/L 5-48 [facility] ALKALINE PHOSPHATASE 67 U/L 40-140 [facility] TOTAL PROTEIN 6.6 G/DL 5.9-8.3 N [facility] ALBUMIN 4.4 G/DL 3.0-5.1 [facility] GLOBULIN 2.2 G/DL 1.5-3.5 N [facility] ALB/GLOB RATIO 2.0 G/DL 1.0-3.0 N [facility] ID Date Data Source [id number] 05/19/2021 09:27:00 AM EDT [facility] ([facility]) Name Value Range Interpretation Code Description Data Remedios rce(s) Supporting Document(s) Thyrotropin [Units/volume] in Serum or Plasma by Detec tion limit <= 0.05 mIU/L 2.232 uIU/ML Normal TSH [facility] ([facility]) Note: Patients should not be tested for 72 hours post fluorescein dye angiography. A false depression of result may occur.Responsible Observer: TSH TSH 300.5500 (A) ID Date Data Source [id number] 05/19/2021 09:27:00 AM EDT [facility] ([facility]) Name Value Range Interpretation Code Description Data Remedios rce(s) Supporting Document(s) Albumin/Globulin [Mass Ratio] in Amniotic fluid 1.6 G/DL Normal ALB/GLOB RATIO [facility] ([facility]) Note: Responsible Observer: A/G RATIO AL B/GLOB RATIO 300.4100 (A) Albumin [Mass/volume] in Synovial fluid 4.1 G/DL Normal ALBUMIN [facility] ([facility]) Note: Responsible Observer: ALB ALBUMIN 300.3900 (A) Alkaline phosphatase isoenzyme [Units/volume] in Serum or Plasma 67 U/L Normal ALKALINE PHOSPHATASE [facility] ([facility]) Note: Responsible Observer: ALK PHOS ALK STEVENSON PHOSPHATASE 300.3110 (A) Alanine aminotransferase [Enzymatic activity/volume] in Seru m or Plasma 18 U/L Normal ALT [facility] ([facility]) Note: Responsible Observer: ALT/SGPT ALT 300.3100 (A) BLOOD UREA NITRO 28 MG/DL Above high normal BLOOD UREA N ITRO [facility] ([facility]) Note: Responsible Observer: BUN BLOOD UR EA NITROGEN 300.0350 (A) Bilirubin.total [Mass/volume] in Serum or Plasma 0.5 MG/DL Normal BILIRUBIN,TOTAL [facility] ([facility]) Note: Responsible Observer: TOTAL BILI T OTAL BILIRUBIN 300.2700 (A) Aspartate aminotransferase [Enzymatic activity/volume] in Serum or Plasma 28 U/L Normal AST [facility] ([facility]) Note: Responsible Observer: AST/SGOT AST 300.3050 (A) Urea nitrogen/Creatinine [Mass Ratio] in Serum or Plasma 23 Normal BUN/CREAT RATIO [facility] ([facility]) Note: Responsible Observer: BUN/CREAT RA VIPIN BUN/CREAT RATIO 300.0450 (A) Chloride [Moles/volume] in Serum, Plasma or Blood 102 MEQ/L Normal CHLORIDE [facility] ([facility]) Note: Responsible Observer: CL CHLORIDE 300.0200 (A) Carbon dioxide, total [Moles/volume] in Serum or Plasma 32 MEQ/L Normal CARBON DIOXIDE [facility] ([facility]) Note: Responsible Observer: CO2 CARBON D IOXIDE 300.0250 (A) CA 10.6 MG/DL Above high normal [facility] Responsible Observer: CA CALCIUM 300.2200 (A) Anion gap in Blood 7 Normal ANION GAP [facility] ([facility]) Note: Responsible Observer: ANION GAP AN ION GAP 300.0300 (A) Creatine/Creatinine [Mass Ratio] in Urine 1.2 MG/DL Betty l CREATININE [facility] ([facility]) Note: Responsible Observer: CREAT CREATI NINE 300.0400 (A) GFR 43.8 ML/MIN GFR [facility] ([facility]) Note: Stage G3b - Moderately to severel [...] years only.Responsible Observer: GFR GFR 300.0410 (A) Globulin [Mass/volume] in Serum by calculation 2.6 G/DL Normal GLOBULIN [facility] ([facility]) Note: Responsible Observer: GLOB GLOBULI N 300.4050 (A) Potassium [Mass/volume] in Blood 3.9 MEQ/L Normal POT ASSIUM [facility] ([facility]) Note: Responsible Observer: K POTASSIUM 300.0150 (A) Glucose [Presence] in Urine 98 MG/DL Normal [facility] Note: Responsible Observer: GLU GLUCOSE 300.0500 (A) Sodium [Moles/volume] in Serum, Plasma or Blood 137 MEQ/L Normal SODIUM [facility] ([facility]) Note: Responsible Observer: NA SODIUM 3 00.0100 (A) Protein [Mass/volume] in Synovial fluid 6.7 G/DL Normal TOTAL PROTEIN [facility] ([facility]) Note: Responsible Observer: TP TOTAL PRO TEIN 300.3750 (A) ID Date Data Source [id number] 05/19/2021 09:27:00 AM EDT [facility] ([facility]) Name Value Range Interpretation Code Description Data Remedios rce(s) Supporting Document(s) BASO # (AUTO) 0.07 10\\^3/uL Normal BASO # (AUTO) [facility] ([facility]) Note: Responsible Observer: BASO # (AUTO ) BASO # (AUTO) 100.1500 (A) BASO % (AUTO) 1.0 % Normal BASO % (AUTO) [facility] ([facility]) Note: Responsible Observer: BASO % (AUTO ) BASO % (AUTO) 100.1250 (A) EOS # (AUTO) 0.53 10\\^3/uL Normal EOS # (AUTO) [facility] ( [facility]) Note: Responsible Observer: EOS # (AUTO) EOS # (AUTO) 100.1450 (A) GRAN # (AUTO) 4.52 10\\^3/uL Normal GRAN # (AUTO) [facility] ([facility]) Note: Responsible Observer: GRAN # (AUTO ) GRAN #(AUTO) 100.1325 (A) EOS % (AUTO) 7.7 % Normal EOS % (AUTO) [facility] ([facility]) Note: Responsible Observer: EOS % (AUTO) EOS % (AUTO) 100.1200 (A) GRAN % (AUTO) 65.2 % Normal GRAN % (AUTO) [facility] ([facility]) Note: Responsible Observer: GRAN % (AUTO ) GRAN % (AUTO) 100.1000 (A) Hematocrit [Volume Fraction] of Blood by Automated count 36.7 % Normal HEMATOCRIT [facility] ([facility]) Note: Responsible Observer: HCT HEMATOCR IT 100.0400 (A) Hemoglobin [Mass/volume] in Blood 11.9 G/DL Normal HE MOGLOBIN [facility] ([facility]) Note: Responsible Observer: HGB HEMOGLOB IN 100.0300 (A) IG # (AUTO) 0.0 10\\^3/uL IG # (AUTO) [facility] ([facility]) Note: Responsible Observer: IG # (AUTO) IG # (AUTO) 100.1260 (A) IG % (AUTO) 0.3 % IG % (AUTO) [facility] ([facility]) Note: Responsible Observer: IG % (AUTO) IG % (AUTO) 100.1255 (A) LYMPH # (AUTO) 1.0 k/uL Normal LYMPH # (AUTO) [facility] ( [facility]) Note: Responsible Observer: LYMPH # (AUT O) LYMPH # (AUTO) 100.1350 (A) Erythrocyte mean corpuscular hemoglobin [Entitic mass] by Automated count 31.0 PG Normal MCH [facility] ([facility]) Note: Responsible Observer: MCH MCH 100 .0600 (A) LYMPH % (AUTO) 14.5 % Below low normal LYMPH % (AUTO) [facility] ([facility]) Note: Responsible Observer: LYMPH % (AUT O) LYMPH % (AUTO) 100.1100 (A) Erythrocyte mean corpuscular hemoglobin concentration [Mass/volume] by Automated count 32.4 G/DL Normal MCHC [facility] ([facility]) Note: Responsible Observer: MCHC MCHC 1 00.0650 (A) Erythrocyte mean corpuscular volume [Entitic volume] by Auto mated count 95.6 FL Normal MCV [facility] ([facility]) Note: Responsible Observer: MCV MCV 100 .0550 (A) MONO % (AUTO) 11.3 % Normal MONO % (AUTO) [facility] ([facility]) Note: Responsible Observer: MONO % (AUTO ) MONO% (AUTO) 100.1150 (A) MONO # (AUTO) 0.78 k/uL Normal MONO # (AUTO) [facility] ([facility]) Note: Responsible Observer: MONO # (AUTO ) MONO # (AUTO) 100.1400 (A) MPV 10.3 FL Normal MPV [facility] ([facility]) Note: Responsible Observer: MPV MPV 100 .0950 (A) Platelets [#/volume] in Plasma by Automated count 282 10\\^3/uL Normal PLATELET COUNT [facility] ([facility]) Note: Responsible Observer: PLT PLATELET COUNT 100.0850 (A) Erythrocyte distribution width [Ratio] by Automated count 11.6 % Normal RDW [facility] ([facility]) Note: Responsible Observer: RDW RDW 100 .0700 (A) Erythrocytes [#/volume] in Blood by Automated count 3.84 10\\^6/u L Below low normal RED BLOOD COUNT [facility] ([facility]) Note: Responsible Observer: RBC RED BLOO D COUNT 100.0250 (A) Leukocytes [#/volume] in Blood by Automated count 6.92 10\\^3/uL Normal WHITE BLOOD COUNT [facility] ([facility]) Note: Responsible Observer: WBC WHITE BL OOD COUNT 100.0150 (A) ID Date Data Source [id number] 05/19/2021 01:43:00 PM EDT [facility] Name Value Range Interpretation Code Description Data Remedios rce(s) Supporting Document(s) WHITE BLOOD COUNT 6.92 10^3/uL 4.00-10.50 N [facility] ealt RED BLOOD COUNT 3.84 10^6/uL 3.90-5.20 L [facility] HEMOGLOBIN 11.9 G/DL 11.5-15.6 N [facility] HEMATOCRIT 36.7 % 35.0-46.0 N [facility] MCV 95.6 FL 80.0-100.0 N [facility] MCH 31.0 PG 27.0-34.0 N [facility] MCHC 32.4 G/DL 32-36 N [facility] RDW 11.6 % 11.5-14.5 N [facility] PLATELET COUNT 282 10^3/uL 130-400 N [facility] MPV 10.3 FL 8.7-13.2 N [facility] GRAN % (AUTO) 65.2 % 42.0-75.0 N [facility] LYMPH % (AUTO) 14.5 % 20.0-51.0 L [facility] MONO % (AUTO) 11.3 % 2.0-15.0 N [facility] EOS % (AUTO) 7.7 % 0.0-11.0 N [facility] BASO % (AUTO) 1.0 % 0.0-2.0 N [facility] IG % (AUTO) 0.3 % 1.00-5.00 [facility] IG # (AUTO) 0.0 10^3/uL <0.5 [facility] GRAN # (AUTO) 4.52 10^3/uL 1.50-6.50 N [facility] LYMPH # (AUTO) 1.0 k/uL 1.0-5.0 N [facility] MONO # (AUTO) 0.78 k/uL 0.20-1.50 N [facility] EOS # (AUTO) 0.53 10^3/uL 0.00-1.10 N [facility] BASO # (AUTO) 0.07 10^3/uL 0.00-0.20 N [facility] ID Date Data Source [id number] 05/19/2021 02:24:00 PM EDT [facility] Name Value Range Interpretation Code Description Data Remedios rce(s) Supporting Document(s) SODIUM 137 MEQ/L 135-145 N [facility] POTASSIUM 3.9 MEQ/L 3.5-5.3 N [facility] CHLORIDE 102 MEQ/L 94-110 N [facility] CARBON DIOXIDE 32 MEQ/L 22-33 N [facility] ANION GAP 7 5-16 N [facility] BLOOD UREA NITRO 28 MG/DL 7-25 H [facility] CREATININE 1.2 MG/DL 0.6-1.4 N [facility] GFR 43.8 ML/MIN [facility] Stage G3b - Moderately to severely decr eased kidney function The GFR is an estimate of the Glomerular Filtration Rate. It is an aid to assess a patient's renal function. It is not a conclusive diagnosis of kidney disease. GFR normal is >=90 The MDRD GFR calculation is considered valid between the ages of 18 and 75 years only. BUN/CREAT RATIO 23 8-36 N [facility] GLUCOSE 98 MG/DL 70-100 N [facility] CA 10.6 MG/DL 8.7-10.5 H [facility] BILIRUBIN,TOTAL 0.5 MG/DL 0.1-1.3 N [facility] AST 28 U/L 5-40 N [facility] ALT 18 U/L 5-48 N [facility] ALKALINE PHOSPHATASE 67 U/L 40-140 N [facility] alth TOTAL PROTEIN 6.7 G/DL 5.9-8.3 N [facility] ALBUMIN 4.1 G/DL 3.0-5.1 N [facility] GLOBULIN 2.6 G/DL 1.5-3.5 N [facility] ALB/GLOB RATIO 1.6 G/DL 1.0-3.0 [facility] ID Date Data Source [id number] 05/19/2021 02:24:00 PM EDT [facility] Name Value Range Interpretation Code Description Data Remedios rce(s) Supporting Document(s) TSH 2.232 uIU/ML 0.470-4.200 N [facility] Patients should not be tested for 72 ho urs post fluorescein dye angiography. A false depression of result may occur. ID Date Data Source [id number] 02/22/2021 02:26:00 [place] [address] Patient Name: Erin Mas Exam Date: 02/22/21 : 1945 Ordering Doctor: Nalini Zavala Attending Doctor: Nalini Zavala CC: EXAM: Knee x-ray. INDICATION: PAIN IN RIGHT KNEE. TECHNIQUE: Three nonweightbearing views of the right knee were obtained. FINDINGS: No acute fracture or dislocation. Alignment is anatomic. Prominent marginal osteophytes are present. No significant tibiofemoral joint space narrowing on these nonweightbearing views. Mild narrowing of the medial patellofemoral compartment. There is spurring of tibial spines. Scattered atherosclerosis is noted. No significant joint effusion or soft tissue swelling. IMPRESSION: 1. No acute fracture or dislocation. 2. Degenerative changes including mild medial patellofemoral compartment joint space narrowing. Professional interpretation performed at [facility] . End of diagnostic report: [id number] Signed: Tracy Baird MD 02/22/21 1638 Interpreted by: Tracy BairdTranscribed by: Tracy Baird Name Value Range Interpretation Code Description Data Remeidos rce(s) Supporting Document(s) ID Date Data Source [id number] 11/09/2020 11:03:00 AM EST [facility] ([facility]) Name Value Range Interpretation Code Description Data Remedios rce(s) Supporting Document(s) Reported Physicians See Note Reported Physicians [facility] ([facility]) Note: Reported Physicians:Ordering: Jemma Hector LAttending: Jemma Hector ID Date Data Source [id number] 11/09/2020 11:03:00 AM [facility] ([facility] [employer]) Name Value Range Interpretation Code Description Data Remedios rce(s) Supporting Document(s) Thyrotropin [Units/volume] in Serum or Plasma by Detec tion limit <= 0.05 mIU/L 1.967 uIU/ML Normal TSH [facility] ([facility]) Note: Patients should not be tested for 72 hours post fluorescein dye angiography. A false depression of result may occur.Responsible Observer: TSH TSH 300.5500 (A) ID Date Data Source [id number] 11/09/2020 11:03:00 AM [facility] ([employer]) Name Value Range Interpretation Code Description Data Remedios rce(s) Supporting Document(s) Calcidiol [Mass/volume] in Serum or Plasma 41.7 ng/ml Normal Vitamin D,25-HYDROXY [facility] ([facility]) Note: Vitamin D Status Rang e Deficiency <20 ng/ml Insufficiency 20-29.9 ng/ml Sufficiency 30-100 ng/ml Toxicity >100 ng/ml Patients should not be tested for 72 hours post fluorescein dye angiography. A false elevation of result may occur.Responsible Observer: Vitamin D Vitamin D,25-Hydroxy 300.5230 (A) ID Date Data Source [id number] 11/09/2020 11:03:00 AM [facility] ([facility] [employer]) Name Value Range Interpretation Code Description Data Remedios rce(s) Supporting Document(s) Cholesterol crystals [Presence] in Stone by Infrared spectroscop y 191 MG/DL Normal CHOLESTEROL [facility] ([facility]) Note: Responsible Observer: CHOL CHOLEST KIM 300.4350 (A) Deprecated Cholesterol.in LDL/Cholestero l.in HDL [Mass ratio] in Serum or Plasma 2.9 Normal CHOL/HDL RATIO [facility] ([facility] ) Note: Responsible Observer: CHOL/HDL RAT IO CHOL/HDL RATIO 300.4700 (A) Cholesterol in LDL [Mass/volume] in Serum or Plasma by Direct as say 110 MG/DL Normal LDL CHOLESTEROL [facility] ([facility]) Note: Responsible Observer: LDL LDL CHOL ESTEROL 300.4400 (A) Cholesterol in HDL [Mass/volume] in Serum or Plasma ultracen trifugate 66 MG/DL Normal HDL CHOLESTEROL [facility] ([facility]) Note: Responsible Observer: HDL HDL CHOL ESTEROL 300.4600 (A) Triglyceride [Mass/volume] in Serum or Plasma 75 MG/DL N ormal TRIGLYCERIDES [facility] ([facility]) Note: Responsible Observer: TRIG TRIGLYC ERIDES 300.4300 (A) ID Date Data Source [id number] 11/09/2020 11:03:00 AM EST [facility] ([facility]) Name Value Range Interpretation Code Description Data Remedios rce(s) Supporting Document(s) Albumin/Globulin [Mass Ratio] in Amniotic fluid 2.6 G/DL Normal ALB/GLOB RATIO [facility] ([facility]) Note: Responsible Observer: A/G RATIO AL B/GLOB RATIO 300.4100 (A) Albumin [Mass/volume] in Synovial fluid 4.5 G/DL Normal ALBUMIN [facility] ([facility]) Note: Responsible Observer: ALB ALBUMIN 300.3900 (A) Alkaline phosphatase isoenzyme [Units/volume] in Serum or Plasma 64 U/L Normal ALKALINE PHOSPHATASE [facility] ([facility]) Note: Responsible Observer: ALK PHOS ALK STEVENSON PHOSPHATASE 300.3110 (A) Aspartate aminotransferase [Enzymatic activity/volume] in Serum or Plasma 28 U/L Normal AST [facility] ([facility]) Note: Responsible Observer: AST/SGOT AST 300.3050 (A) Alanine aminotransferase [Enzymatic activity/volume] in Seru m or Plasma 16 U/L Normal ALT [facility] ([facility]) Note: Responsible Observer: ALT/SGPT ALT 300.3100 (A) Bilirubin.total [Mass/volume] in Serum or Plasma 0.6 MG/DL Normal BILIRUBIN,TOTAL [facility] ([facility]) Note: Responsible Observer: TOTAL BILI T OTAL BILIRUBIN 300.2700 (A) Urea nitrogen/Creatinine [Mass Ratio] in Serum or Plasma 26 Normal BUN/CREAT RATIO [facility] ([facility]) Note: Responsible Observer: BUN/CREAT RA VIPIN BUN/CREAT RATIO 300.0450 (A) CA 9.7 MG/DL Normal CA [facility] ([facility]) Note: Responsible Observer: CA CALCIUM 300.2200 (A) BLOOD UREA NITRO 26 MG/DL Above high normal BLOOD UREA N ITRO [facility] ([facility]) Note: Responsible Observer: BUN BLOOD UR EA NITROGEN 300.0350 (A) Carbon dioxide, total [Moles/volume] in Serum or Plasma 33 MEQ/L Normal CARBON DIOXIDE [facility] ([facility]) Note: Responsible Observer: CO2 CARBON D IOXIDE 300.0250 (A) Chloride [Moles/volume] in Serum, Plasma or Blood 98 MEQ/L Normal CHLORIDE [facility] ([facility]) Note: Responsible Observer: CL CHLORIDE 300.0200 (A) Creatine/Creatinine [Mass Ratio] in Urine 1.0 MG/DL Betty l CREATININE [facility] ([facility]) Note: Responsible Observer: CREAT CREATI NINE 300.0400 (A) Anion gap in Blood 7 Normal ANION GAP [facility] ([facility]) Note: Responsible Observer: ANION GAP AN ION GAP 300.0300 (A) GFR 54.2 ML/MIN GFR [facility] ([facility]) Note: Stage G3a - Mildly to moderately decreased kidney function The GFR is an estimate of the Glomerular Filtration Rate. It is an aid to assess a patient's renal function. It is not a conclusive diagnosis of kidney disease. GFR normal is >=90 The MDRD GFR calculation is considered valid between the ages of 18 and 75 years only.Responsible Observer: GFR GFR 300.0410 (A) Globulin [Mass/volume] in Serum by calculation 1.7 G/DL Normal GLOBULIN [facility] ([facility]) Note: Responsible Observer: GLOB GLOBULI N 300.4050 (A) Glucose [Presence] in Urine 100 MG/DL [facility] Note: Responsible Observer: GLU GLUCOSE 300.0500 (A) Potassium [Mass/volume] in Blood 3.9 MEQ/L Normal POT ASSIUM [facility] ([facility]) Note: Responsible Observer: K POTASSIUM 300.0150 (A) Protein [Mass/volume] in Synovial fluid 6.2 G/DL Normal TOTAL PROTEIN [facility] ([facility]) Note: Responsible Observer: TP TOTAL PRO TEIN 300.3750 (A) Sodium [Moles/volume] in Serum, Plasma or Blood 134 MEQ/L Below low normal SODIUM [facility] ([facility]) Note: Responsible Observer: NA SODIUM 3 00.0100 (A) ID Date Data Source [id number] 11/09/2020 11:03:00 AM EST [facility] ([facility]) Name Value Range Interpretation Code Description Data Remedios rce(s) Supporting Document(s) BASO # (AUTO) 0.07 10\\^3/uL Normal BASO # (AUTO) [facility] ([facility]) Note: Responsible Observer: BASO # (AUTO ) BASO # (AUTO) 100.1500 (A) BASO % (AUTO) 1.2 % Normal BASO % (AUTO) [facility] ([facility]) Note: Responsible Observer: BASO % (AUTO ) BASO % (AUTO) 100.1250 (A) EOS # (AUTO) 0.44 10\\^3/uL Normal EOS # (AUTO) [facility] ( [facility]) Note: Responsible Observer: EOS # (AUTO) EOS # (AUTO) 100.1450 (A) EOS % (AUTO) 7.5 % Normal EOS % (AUTO) [facility] ([facility]) Note: Responsible Observer: EOS % (AUTO) EOS % (AUTO) 100.1200 (A) GRAN # (AUTO) 3.69 10\\^3/uL Normal GRAN # (AUTO) [facility] ([facility]) Note: Responsible Observer: GRAN # (AUTO ) GRAN #(AUTO) 100.1325 (A) GRAN % (AUTO) 62.7 % Normal GRAN % (AUTO) [facility] ([facility]) Note: Responsible Observer: GRAN % (AUTO ) GRAN % (AUTO) 100.1000 (A) Hemoglobin [Mass/volume] in Blood 12.7 G/DL Normal HE MOGLOBIN [facility] ([facility]) Note: Responsible Observer: HGB HEMOGLOB IN 100.0300 (A) Hematocrit [Volume Fraction] of Blood by Automated count 38.0 % Normal HEMATOCRIT [facility] ([facility]) Note: Responsible Observer: HCT HEMATOCR IT 100.0400 (A) IG # (AUTO) 0.0 10\\^3/uL IG # (AUTO) [facility] ([facility]) Note: Responsible Observer: IG # (AUTO) IG # (AUTO) 100.1260 (A) IG % (AUTO) 0.2 % IG % (AUTO) [facility] ([facility]) Note: Responsible Observer: IG % (AUTO) IG % (AUTO) 100.1255 (A) LYMPH # (AUTO) 1.0 k/uL Normal LYMPH # (AUTO) [facility] ( [facility]) Note: Responsible Observer: LYMPH # (AUT O) LYMPH # (AUTO) 100.1350 (A) LYMPH % (AUTO) 16.7 % Below low normal LYMPH % (AUTO) [facility] ([facility]) Note: Responsible Observer: LYMPH % (AUT O) LYMPH % (AUTO) 100.1100 (A) Erythrocyte mean corpuscular hemoglobin [Entitic mass] by Automated count 31.1 PG Normal MCH [facility] ([facility]) Note: Responsible Observer: MCH MCH 100 .0600 (A) Erythrocyte mean corpuscular hemoglobin concentration [Mass/volume] by Automated count 33.4 G/DL Normal MCHC [facility] ([facility]) Note: Responsible Observer: MCHC MCHC 1 00.0650 (A) Erythrocyte mean corpuscular volume [Entitic volume] by Auto mated count 93.1 FL Normal MCV [facility] ([facility]) Note: Responsible Observer: MCV MCV 100 .0550 (A) MONO % (AUTO) 11.7 % Normal MONO % (AUTO) [facility] ([facility]) Note: Responsible Observer: MONO % (AUTO ) MONO% (AUTO) 100.1150 (A) MONO # (AUTO) 0.69 k/uL Normal MONO # (AUTO) [facility] ([facility]) Note: Responsible Observer: MONO # (AUTO ) MONO # (AUTO) 100.1400 (A) MPV 10.4 FL Normal MPV [facility] ([facility]) Note: Responsible Observer: MPV MPV 100 .0950 (A) Erythrocytes [#/volume] in Blood by Automated count 4.08 10\\^6/uL Normal RED BLOOD COUNT [facility] ([facility]) Note: Responsible Observer: RBC RED BLOO D COUNT 100.0250 (A) Platelets [#/volume] in Plasma by Automated count 282 10\\^3/uL Normal PLATELET COUNT [facility] ([facility]) Note: Responsible Observer: PLT PLATELET COUNT 100.0850 (A) Leukocytes [#/volume] in Blood by Automated count 5.88 10\\^3/uL Normal WHITE BLOOD COUNT [facility] ([facility]) Note: Responsible Observer: WBC WHITE BL OOD COUNT 100.0150 (A) Erythrocyte distribution width [Ratio] by Automated count 11.4 % Below low normal RDW [facility] ([facility]) Note: Responsible Observer: RDW RDW 100 .0700 (A) ID Date Data Source [id number] 11/09/2020 01:47:00 PM [facility] Has Patient Fasted For The Past 12 Hour s? N Has Patient Fasted For The Past 12 Hours? Y Has Patient Fasted For The Past 12 Hour s? N Has Patient Fasted For The Past 12 Hours? Y Has Patient Fasted For The Past 12 Hour s? N Has Patient Fasted For The Past 12 Hours? Y Has Patient Fasted For The Past 12 Hour s? N Has Patient Fasted For The Past 12 Hours? Y Name Value Range Interpretation Code Description Data Remedios rce(s) Supporting Document(s) WHITE BLOOD COUNT 5.88 10^3/uL 4.00-10.50 N [facility]alth RED BLOOD COUNT 4.08 10^6/uL 3.90-5.20 N [facility] th HEMOGLOBIN 12.7 G/DL 11.5-15.6 N [facility] HEMATOCRIT 38.0 % 35.0-46.0 N [facility] MCV 93.1 FL 80.0-100.0 [facility] MCH 31.1 PG 27.0-34.0 N [facility] MCHC 33.4 G/DL 32-36 N [facility] RDW 11.4 % 11.5-14.5 L [facility] PLATELET COUNT 282 10^3/uL 130-400 N [facility] MPV 10.4 FL 8.7-13.2 [facility] GRAN % (AUTO) 62.7 % 42.0-75.0 N [facility] LYMPH % (AUTO) 16.7 % 20.0-51.0 L [facility] MONO % (AUTO) 11.7 % 2.0-15.0 N [facility] EOS % (AUTO) 7.5 % 0.0-11.0 N [facility] BASO % (AUTO) 1.2 % 0.0-2.0 N [facility] IG % (AUTO) 0.2 % 1.00-5.00 [facility] IG # (AUTO) 0.0 10^3/uL <0.5 [facility] GRAN # (AUTO) 3.69 10^3/uL 1.50-6.50 N [facility] LYMPH # (AUTO) 1.0 k/uL 1.0-5.0 N [facility] MONO # (AUTO) 0.69 k/uL 0.20-1.50 N [facility] EOS # (AUTO) 0.44 10^3/uL 0.00-1.10 N [facility] BASO # (AUTO) 0.07 10^3/uL 0.00-0.20 N [facility] ID Date Data Source [id number] 11/09/2020 02:22:00 PM EST [facility] Has Patient Fasted For The Past 12 Hour s? N Has Patient Fasted For The Past 12 Hours? Y Has Patient Fasted For The Past 12 Hour s? N Has Patient Fasted For The Past 12 Hours? Y Has Patient Fasted For The Past 12 Hour s? N Has Patient Fasted For The Past 12 Hours? Y Has Patient Fasted For The Past 12 Hour s? N Has Patient Fasted For The Past 12 Hours? Y Name Value Range Interpretation Code Description Data Remedios rce(s) Supporting Document(s) SODIUM 134 MEQ/L 135-145 L [facility] POTASSIUM 3.9 MEQ/L 3.5-5.3 N [facility] CHLORIDE 98 MEQ/L 94-110 N [facility] CARBON DIOXIDE 33 MEQ/L 22-33 N [facility] ANION GAP 7 5-16 N [facility] BLOOD UREA NITRO 26 MG/DL 7-25 H [facility] CREATININE 1.0 MG/DL 0.6-1.4 N [facility] GFR 54.2 ML/MIN [facility] Stage G3a - Mildly to moderately decrea sed kidney function The GFR is an estimate of the Glomerular Filtration Rate. It is an aid to assess a patient's renal function. It is not a conclusive diagnosis of kidney disease. GFR normal is >=90 The MDRD GFR calculation is considered valid between the ages of 18 and 75 years only. BUN/CREAT RATIO 26 8-36 N [facility] GLUCOSE 100 MG/DL 70-100 N [facility] CA 9.7 MG/DL 8.7-10.5 N [facility] BILIRUBIN,TOTAL 0.6 MG/DL 0.1-1.3 [facility] AST 28 U/L 5-40 [facility] ALT 16 U/L 5-48 [facility] ALKALINE PHOSPHATASE 64 U/L 40-140 [facility] alth TOTAL PROTEIN 6.2 G/DL 5.9-8.3 [facility] ALBUMIN 4.5 G/DL 3.0-5.1 [facility] GLOBULIN 1.7 G/DL 1.5-3.5 [facility] ALB/GLOB RATIO 2.6 G/DL 1.0-3.0 [facility] ID Date Data Source [id number] 11/09/2020 02:22:00 PM [facility] Has Patient Fasted For The Past 12 Hour s? N Has Patient Fasted For The Past 12 Hours? Y Has Patient Fasted For The Past 12 Hour s? N Has Patient Fasted For The Past 12 Hours? Y Has Patient Fasted For The Past 12 Hour s? N Has Patient Fasted For The Past 12 Hours? Y Has Patient Fasted For The Past 12 Hour s? N Has Patient Fasted For The Past 12 Hours? Y Name Value Range Interpretation Code Description Data Remedios rce(s) Supporting Document(s) TRIGLYCERIDES 75 MG/DL 45-150 [facility] CHOLESTEROL 191 MG/DL 125-200 [facility] LDL CHOLESTEROL 110 MG/DL 50-130 [facility] HDL CHOLESTEROL 66 MG/DL 32-96 [facility] CHOL/HDL RATIO 2.9 0-4.3 [facility] ID Date Data Source [id number] 11/09/2020 02:22:00 PM [facility] Has Patient Fasted For The Past 12 Hour s? N Has Patient Fasted For The Past 12 Hours? Y Has Patient Fasted For The Past 12 Hour s? N Has Patient Fasted For The Past 12 Hours? Y Has Patient Fasted For The Past 12 Hour s? N Has Patient Fasted For The Past 12 Hours? Y Has Patient Fasted For The Past 12 Hour s? N Has Patient Fasted For The Past 12 Hours? Y Name Value Range Interpretation Code Description Data Remedios rce(s) Supporting Document(s) Vitamin D,25-HYDROXY 41.7 ng/ml 30-100 N [facility] ealt Vitamin D Status Range De ficiency <20 ng/ml Insufficiency 20-29.9 ng/ml Sufficiency 30-100 ng/ml Toxicity >100 ng/ml Patients should not be tested for 72 hours post fluorescein dye angiography. A false elevation of result may occur. ID Date Data Source [id number] 11/09/2020 02:22:00 PM EST [facility] Has Patient Fasted For The Past 12 Hour s? N Has Patient Fasted For The Past 12 Hours? Y Has Patient Fasted For The Past 12 Hour s? N Has Patient Fasted For The Past 12 Hours? Y Has Patient Fasted For The Past 12 Hour s? N Has Patient Fasted For The Past 12 Hours? Y Has Patient Fasted For The Past 12 Hour s? N Has Patient Fasted For The Past 12 Hours? Y Name Value Range Interpretation Code Description Data Remedios rce(s) Supporting Document(s) TSH 1.967 uIU/ML 0.470-4.200 N [facility] Patients should not be tested for 72 ho urs post fluorescein dye angiography. A false depression of result may occur. ID Date Data Source [id number] 09/07/2020 04:13:00 PM EST [employer] [facility] Name Value Range Interpretation Code Description Data Remedios rce(s) Supporting Document(s) Throat Swab negative Normal Throat Swab [facility] ([facility]) ID Date Data Source [id number] 09/07/2020 03:33:00 PM EST [facility] ([employer] Name Value Range Interpretation Code Description Data Remedios rce(s) Supporting Document(s) Reported Physicians See Note Reported Physicians [facility] ([facility]) Note: Reported Physicians:Ordering: Evie Rosario LAttending: Evie Buchanan ID Date Data Source [id number] 09/07/2020 03:33:00 PM EST [facility] ([employer]) Name Value Range Interpretation Code Description Data Remedios rce(s) Supporting Document(s) See Note [place] See Note [place] [facility] ([facility]) Note: Run: 09/09/20 1106 INTERFACED REPORT Name: Erin Mas Age/Sex: 75/F Location: [facility] Acct: [id number] Unit: [id number] Status: REG REF Room/Bed: Re09/07/20 Disch: Att Dr: Evie Buchanan TOP TRIMMER Specimen #: [id number] Ordered : 09/07/20 Collected : 09/07/20 By: OFFICE Received: 09/07/20 By: GMACDOAMIRAH Source: THROAT Specimen Description: Procedure Result FULL THROAT CULT Final USUAL MADYSON AFTER 18 HOURS USUAL MADYSON AFTER 42 HOURS FULL THROAT CULT Preliminary (Corrected) USUAL MADYSON AFTER 18 HOURS END OF REPORT ID Date Data Source [id number] 09/09/2020 11:06:00 AM EST [place] [facility] Run: 09/09/20 1106 INTERFACED REPORT Name: Erin Mas Age/Sex: 75/F Location: [facility] Acct: [id number] Unit: [id number] Status: REG REF Room/Bed: Re09/07/20 Disch: Anna Dr: Evie Buchanan TOP TRIMMER Specimen #: [id number] Ordered : 09/07/20 Collected : 09/07/20 By: OFFICE Received: 09/07/20 By: RACHEL Source: THROAT Specimen Description: Procedure Result - FULL THROAT CULT Final USUAL MADYSON AFTER 18 HOURS USUAL MADYSON AFTER 42 HOURS FULL THROAT CULT Preliminary (Corrected) USUAL MADYSON AFTER 18 HOURS END OF REPORT Name Value Range Interpretation Code Description Data Remedios rce(s) Supporting Document(s) ID Date Data Source [id number] 09/07/2020 03:15:00 PM EST [facility] ([employer] Name Value Range Interpretation Code Description Data Remedios rce(s) Supporting Document(s) Reported Physicians See Note Reported Physicians [facility] ([facility]) Note: Reported Physicians:Ordering: Evie Rosarioding: Evie Buchanan ID Date Data Source [id number] 09/07/2020 03:15:00 PM EST [facility] ([employer] Name Value Range Interpretation Code Description Data Remedios rce(s) Supporting Document(s) COVID 19 Not Detected COVID 19 [facility] Note: This nucleic acid amplification t est was developed and its performance characteristics determined by [facility]. Nucleic acid amplification tests include PCR and TMA. This test has not been FDA cleared or approved. This test has been authorized by FDA under an Emergency Use Authorization (EUA). This test is only authorized for the duration of time the declaration that circumstances exist justifying the authorization of the emergency use of in vitro diagnostic tests for detection of SARS-CoV-2 virus and/or diagnosis of COVID-19 infection under section 564(b)(1) of the Act, 21 U.S.C. 360bbb-3(b) (1), unless the authorization is terminated or revoked sooner. When diagnostic testing is negative, the possibility of a false negative result should be considered in the context of a patient's recent exposures and the presence of clinical signs and symptoms consistent with COVID-19. An individual without symptoms of COVID-19 and who is not shedding SARS-CoV-2 virus would expect to have a negative (not detected) result in this assay. Performed at: [facility], [place], [place] [id number] Gut Carrier: Jodee Tucker PhD, Phone: [phone] Observer: COVID 19 COVID 19 [id number] [phone] (A) ID Date Data Source [id number] 09/07/2020 03:15:00 PM EST [facility] Name Value Range Interpretation Code Description Data Remedios rce(s) Supporting Document(s) SARS coronavirus 2 RNA [facility] This lab was ordered by [facility] and reported by [facility]. ID Date Data Source [id number] 09/09/2020 08:46:00 PM EST [facility] Name Value Range Interpretation Code Description Data Remedios rce(s) Supporting Document(s) COVID 19 Not Detected Not Detected [facility] This nucleic acid amplification test wa s developed and its performance characteristics determined by [facility]. Nucleic acid amplification tests include PCR and TMA. This test has not been FDA cleared or approved. This test has been authorized by FDA under an Emergency Use Authorization (EUA). This test is only authorized for the duration of time the declaration that circumstances exist justifying the authorization of the emergency use of in vitro diagnostic tests for detection of SARS-CoV-2 virus and/or diagnosis of COVID-19 infection under section 564(b)(1) of the Act, 21 U.S.C. 360bbb-3(b) (1), unless the authorization is terminated or revoked sooner. When diagnostic testing is negative, the possibility of a false negative result should be considered in the context of a patient's recent exposures and the presence of clinical signs and symptoms consistent with COVID-19. An individual without symptoms of COVID-19 and who is not shedding SARS-CoV-2 virus would expect to have a negative (not detected) result in this assay. Performed at: [facility] [address], [place], [place] [id number] Gut Carrier: Jodee Tucker PhD, Phone: [phone] ID Date Data Source [id number] 07/20/2020 12:00:00 AM EDT [facility] Amanda Ray DO Patient Name: ERIN MAS [address] Date of : [id number] [id number] Date of Exam: 07/20/2020#: Fax: [phone] EXAM: MAMMO SCREENING WITH CADCLINICAL INFORMATION: Screening.Based on the personal and family history information your patient suppliedat the time of imaging, her lifetime risk of breast cancer estimated by theTyrer-Cuzick model is 8.1%. Given that this patient has less than 20% TCrisk score, no further medical management is currently recommended at thistime.Digital screening (2D) mammography was performed bilaterally in the CC andMLO projections. Add itionally, breast tomosynthesis (3D mammography) wasperformed bilaterally in the CC and MLO projections. Today's exam wascompared to the prior exam(s).By history, the patient has no complaints of a palpable breast abnormalityor other significant breast complaints.The patient states last clinical breast exam was in April of 2020.The breasts are unchanged in size and shape. There are no judi- soft tissuedensities or spiculated masses. There is no internal architecturaldistortion. There are no suspicious judi-calcific clusters. Skinthickening or nipple retraction is not present. Benign calcifications areagain seen bilaterally.The Volpara volumetric breast density category is B, there are scatteredareas of fibroglandular density.IMPRESSION:BI-RADS Category 2 - Benign Finding(s). Stable mammogram. There is noevidence of malignant alteration of the breasts. Followup examinationrecommended in one year.This mammogram was read with the assistance of [employer], an FDAapproved computer aided detection system for mammography.Negative x-ray reports should not delay surgical consultation if a dominantor clinically suspicious mass is present.Not all breast cancers can be identified by mammography. Therefore, werecommend that you continue to perform regular breast self-examination andphysical examination and then promptly contact your physician of anyconcerns or changes.Adenosis and dense breasts may obscure an underlying neoplasm.LISA Kearney/Roxanne you for referring ERIN MAS to our office.Electronically Signed - JARROD POSEY DO 07/20/20 11:35 Name Value Range Interpretation Code Description Data Remedios rce(s) Supporting Document(s) Procedure Social History Code Duration Value Status Description Data Source(s ) Smoking 06/08/2021 12:00:00 AM EDT Never smoked tobacco (findi ng) completed Never smoked tobacco (finding) [facility] Smoking 05/27/2021 12:00:00 AM EDT Never smoked tobacco (findi ng) completed Never smoked tobacco (finding) [facility] Smoking 03/17/2021 12:00:00 AM EDT Never smoked tobacco (findi ng) completed Never smoked tobacco (finding) [facility] Smoking 03/17/2021 12:00:00 AM EDT Never smoked tobacco (findi ng) completed Never smoked tobacco (finding) [facility] ([facility]) Smoking 03/17/2021 12:00:00 AM EDT Never smoked tobacco (findi ng) completed Never smoked tobacco (finding) [facility] ([facility]) Smoking 02/22/2021 12:00:00 AM EDT smoking status completed [facility] ([facility]) Smoking 11/18/2020 12:00:00 AM EST Never smoked tobacco (findi ng) completed Never smoked tobacco (finding) [facility] ([facility]) Smoking 09/10/2020 12:00:00 AM EST Never smoked tobacco (findi ng) completed Never smoked tobacco (finding) [facility] ([facility]) Smoking 09/07/2020 12:00:00 AM EST Never smoked tobacco (findi ng) completed Never smoked tobacco (finding) [facility] ([facility]) Vital Signs ID Date Data Source UNK Name Value Range Interpretation Code Description Data Source(s) Systolic blood pressure 121 mm[Hg] 121 mm[Hg] M EDENT ([facility]) Diastolic blood pressure 62 mm[Hg] 62 mm[Hg] MED[facility] ([facility]) Body weight 156.00 [lb_av] 156.00 [lb_av] MEDEN T ([facility]) Respiratory rate 16 /min 16 /min [facility] ( [facility]) Systolic blood pressure 130 mm[Hg] 130 mm[Hg] G REEREPLACED BY [facility] ([facility]) pt unable to get full set of vitals. [facility] Diastolic blood pressure 70 mm[Hg] 70 mm[Hg] [facility] ([facility]) pt unable to get full set of vitals. [facility] Body weight 155.8 [lb_av] 155.8 [lb_av] [facility] ([facility]) pt unable to get full set of vitals. [facility] PhenX - pain, abdominal - type and intensity protocol 1 1 [facility] ([facility]) pt unable to get full set of vitals. [facility] PhenX - pain, abdominal - type and intensity protocol 0 0 [facility] ([facility]) 05/03- 120/67, 05/04- 120/70, 05/11- 132/65 , 05/14- 130/64, 05/19- 134/70, , Systolic blood pressure 136 mm[Hg] 136 mm[Hg] G REENWAY ([facility]) , , 65 , [address], 70, , Diastolic blood pressure 74 mm[Hg] 74 mm[Hg] [facility] ([facility]) , , , , , , Heart rate 59 /min 59 /min [facility] ([facility]) , , 65 , , , , Respiratory rate 17 /min 17 /min [facility] ([facility]) , , , , , , Body temperature 96.2 [degF] 96.2 [degF] GREENW AY ([facility]) , , , , , , Body height 66.5 [in_i] 66.5 [in_i] [facility] ([facility]) , , 65 , 64, 70, , Body weight 157.4 [lb_av] 157.4 [lb_av] GREENWA Y ([facility]) , , , , , , Body mass index (BMI) [Ratio] 25.0 kg/m2 25.0 k g/m2 [facility] ([facility]) , , , , , , Body surface area Derived from formula 1.82 m2 1.82 m2 [facility] ([facility]) , , , , , , Oxygen saturation in Arterial blood by Pulse oximetry 100 % 100 % [facility] ([facility]) , , , , , , Inhaled oxygen flow rate 0 L/min 0 L/min [facility] ([facility]) , , , , , , Inhaled oxygen concentration 21 % 21 % [facility] ([facility]) , , , , , , Diastolic blood pressure 70 mm[Hg] 70 mm[Hg] COLIN ([facility], ) Body weight 160.00 [lb_av] 160.00 [lb_av] NEGRITA Dodge ([facility], ) Systolic blood pressure 126 mm[Hg] 126 mm[Hg] [facility] Body mass index (BMI) [Ratio] 25.1 kg/m2 25.1 k g/m2 [facility] Ellis body weight 135 [lb_av] 135 [lb_av] MEDEN T ([facility]) Body weight 72.576 kg 72.576 kg [facility] ([facility]) Body surface area Derived from formula 1.84 m2 1.84 m2 [facility] ([facility]) Body height 67 [in_i] 67 [in_i] MEDENT ([facility]) 5'7" Body height 67 [in_i] 67 [in_i] [facility] 5'7" Body weight 160.00 [lb_av] 160.00 [lb_av] MEDEN T ([facility]) Body mass index (BMI) [Ratio] 25.1 kg/m2 25.1 k g/m2 [facility] ([facility]) Ellis body weight 135 [lb_av] 135 [lb_av] MEDEN T ([facility]) Body weight 72.576 kg 72.576 kg [facility] ([facility]) Body surface area Derived from formula 1.84 m2 1.84 m2 [facility] ([facility]) Systolic blood pressure 138 mm[Hg] 138 mm[Hg] G REENWAY ([facility]) Diastolic blood pressure 82 mm[Hg] 82 mm[Hg] [facility]) Heart rate 73 /min 73 /min [facility] Respiratory rate 14 /min 14 /min [facility] Body temperature 97.7 [degF] 97.7 [degF] GREENW AY ([facility] Body weight 157 [lb_av] 157 [lb_av] [facility] PhenX - pain, abdominal - type and intensity protocol 1 1 [facility] ([facility]) Oxygen saturation in Arterial blood by Pulse oximetry 100 % 100 % [facility] ([facility]) Inhaled oxygen flow rate 0 L/min 0 L/min [facility] ([facility]) Inhaled oxygen concentration 21 % 21 % [facility] ([facility]) Systolic blood pressure 154 mm[Hg] 154 mm[Hg] G RE[facility]WAY ([facility]) Diastolic blood pressure 82 mm[Hg] 82 mm[Hg] [facility] ([facility]) Heart rate 63 /min 63 /min [facility] ([facility]) Heart rate rhythm 1 1 [facility] Y ([facility]) Respiratory rate 18 /min 18 /min [facility] ([facility]) Body temperature 96.7 [degF] 96.7 [degF] [facility] ([facility]) PhenX - pain, abdominal - type and intensity protocol 10 10 [facility] ([facility]) Oxygen saturation in Arterial blood by Pulse oximetry 98 % 98 % [facility] ([facility]) Inhaled oxygen flow rate 0 L/min 0 L/min [facility] ([facility]) Inhaled oxygen concentration 21 % 21 % [facility] ([facility]) Systolic blood pressure 140 mm[Hg] 140 mm[Hg] [facility] ([facility]) Diastolic blood pressure 72 mm[Hg] 72 mm[Hg] [facility] ([facility]) Oxygen saturation in Arterial blood by Pulse oximetry 99 % 99 % [facility] ([facility]) Inhaled oxygen flow rate 0 L/min 0 L/min [facility] ([facility]) Inhaled oxygen concentration 21 % 21 % [facility] ([facility]) Systolic blood pressure 150 mm[Hg] 150 mm[Hg] [facility] ([facility]) Diastolic blood pressure 82 mm[Hg] 82 mm[Hg] [facility] ([facility]) Heart rate 62 /min 62 /min [facility] ([facility]) Respiratory rate 19 /min 19 /min [facility] ([facility]) Body temperature 98 [degF] 98 [degF] [facility] ([facility]) Body weight 158 [lb_av] 158 [lb_av] [facility] ([facility]) PhenX - pain, abdominal - type and intensity protocol 0 0 [facility] ([facility]) Systolic blood pressure 133 mm[Hg] 133 mm[Hg] [facility] ([facility]) pt aqquired vitals Diastolic blood pressure 71 mm[Hg] 71 mm[Hg] [facility] ([facility]) pt aqquired vitals Heart rate 53 /min 53 /min [facility] pt aqquired vitals Body temperature 97 [degF] 97 [degF] [facility] ([facility]) pt aqquired vitals Body weight 154 [lb_av] 154 [lb_av] [facility] aq[facility] vitals PhenX - pain, abdominal - type and intensity protocol 3 3 [facility] ([facility]) pt aqquired vitals Oxygen saturation in Arterial blood by Pulse oximetry 99 % 99 % [facility] ([facility]) pt aqquired vitals Systolic blood pressure 190 mm[Hg] 190 mm[Hg] G RE[facility]WAY ([facility]) Diastolic blood pressure 78 mm[Hg] 78 mm[Hg] [facility] ([facility]) Body temperature 96.6 [degF] 96.6 [degF] GREENW ([facility]) Body weight 156 [lb_av] 156 [lb_av] [facility] PhenX - pain, abdominal - type and intensity protocol 6 6 [facility] ([facility]) Systolic blood pressure 218 mm[Hg] 218 mm[Hg] G [facility] ([facility]) Diastolic blood pressure 92 mm[Hg] 92 mm[Hg] [facility] ([facility]) Heart rate 62 /min 62 /min [facility] ([facility] Heart rate rhythm 1 1 [facility] ([facility]) Respiratory rate 16 /min 16 /min [facility] ([facility]) Oxygen saturation in Arterial blood by Pulse oximetry 97 % 97 % [facility] ([facility]) Inhaled oxygen flow rate 0 L/min 0 L/min [facility] ([facility]) Inhaled oxygen concentration 21 % 21 % [facility] ([facility]) Systolic blood pressure 122 mm[Hg] 122 mm[Hg] M [facility] Diastolic blood pressure 60 mm[Hg] 60 mm[Hg] MEDENT ([facility]) Body temperature 97.4 [degF] 97.4 [degF] [facility] Patient Treatment Plan of Care Planned Activity Planned Date Details Description Data Source (s) Pravastatin Sodium 10 MG Oral Tablet 06/22/2021 12:00:00 AM EDT [facility] ([facility]) EQ Loratadine 10 MG Oral Tablet 06/08/2021 12:00:00 AM EDT [facility] ([facility]) [facility] Fluticasone Propionate 50 MCG/ACT Nasal Suspension 05/27/2021 12:00:00 AM EDT [facility] ([facility]) Losartan Potassium 25 MG Oral Tablet 05/27/2021 12:00:00 AM EDT [facility] ([facility]) 24 HR metoprolol succinate 50 MG Extended Release Oral Tablet 05/27/2021 12:00:00 AM EDT [facility] ([facility]) Sertraline 50 MG Oral Tablet [Zoloft] 05/27/2021 12:00:00 AM EDT [facility] ([facility]) Hydrochlorothiazide 25 MG / Triamterene 37.5 MG Oral T ablet [Maxzide] 05/27/2021 12:00:00 AM EDT [facility] ([facility]) gabapentin 100 MG Oral Capsule 05/27/2021 12:00:00 AM EDT [facility] ([facility]) Bacitracin 0.5 UNT/MG Ophthalmic Ointment 05/27/2021 12:00:00 AM ED T [facility] ([facility]) Erythromycin 0.005 MG/MG Ophthalmic Ointment 03/17/2021 12:00:00 AM EDT [facility] ([facility]) Pravastatin Sodium 10 MG Oral Tablet 11/18/2020 12:00:00 AM EST [facility] ([facility]) Hydrochlorothiazide 25 MG / Triamterene 37.5 MG Oral T ablet [Maxzide] 11/18/2020 12:00:00 AM EST [facility] ([facility]) Losartan Potassium 25 MG Oral Tablet 11/18/2020 12:00:00 AM EST [facility] ([facility]) 24 HR metoprolol succinate 50 MG Extended Release Oral Tablet 11/18/2020 12:00:00 AM EST [facility] ([facility]) Sertraline 50 MG Oral Tablet [Zoloft] 11/18/2020 12:00:00 AM EST [facility] ([facility]) gabapentin 100 MG Oral Capsule 09/16/2020 12:00:00 AM EST [facility] ([facility]) Loratadine 10 MG Oral Tablet 09/07/2020 12:00:00 AM EST [facility] ([facility]) Amoxicillin 875 MG / Clavulanate 125 MG Oral Tablet 09/07/20 12:00:00 AM EST [facility] ([facility]) gabapentin 100 MG Oral Capsule 08/31/2020 12:00:00 AM EST [facility] ([facility]) Losartan Potassium 25 MG Oral Tablet 05/21/2020 12:00:00 AM EDT [facility] ([facility]) Hydrochlorothiazide 25 MG / Triamterene 37.5 MG Oral T ablet [Maxzide] 05/21/2020 12:00:00 AM EDT [facility] ([facility]) 24 HR metoprolol succinate 50 MG Extended Release Oral Tablet 05/21/2020 12:00:00 AM EDT [facility] ([facility]) Pravastatin Sodium 10 MG Oral Tablet 05/21/2020 12:00:00 AM ED [facility] ([facility]) Sertraline 50 MG Oral Tablet [Zoloft] 11/13/2019 12:00:00 AM EST [facility] ([facility]) gabapentin 100 MG Oral Capsule 05/01/2019 12:00:00 AM ED [facility] ([facility])
--- NOTE | 2021-08-09 10:09 | ROOR ---
Patient Name: Erin Trimble Procedure Date: 08/09/2021 9:23 AM Date of : 1945 Age: 76 Room: [facility] Gender: Female Note Status: Finalized Procedure: Colonoscopy Indications: High risk colon cancer surveillance: Personal history of colonic polyps, Last colonoscopy: April 2016 Providers: Won Castillo MD Referring MD: KACIE DENNEY DO Requesting Provider: Medicines: Monitored Anesthesia Care Complications: No immediate complications. Procedure: Pre-Anesthesia Assessment: - The heart rate, respiratory rate, oxygen saturations, blood pressure, adequacy of pulmonary ventilation, and response to care were monitored throughout the procedure. The Colonoscope was introduced through the anus and advanced to the cecum, identified by appendiceal orifice and ileocecal valve. The colonoscopy was performed without difficulty. The patient tolerated the procedure well. The quality of the bowel preparation was good. Findings: The perianal and digital rectal examinations were normal. A 4 mm polyp was found in the hepatic flexure. The polyp was sessile. The polyp was removed with a cold snare. Resection and retrieval were complete. Multiple small and large-mouthed diverticula were found in the sigmoid colon, descending colon and transverse colon. Small Internal Hemorrhoids. The exam was otherwise without abnormality on direct and retroflexion views. Impression: - One 4 mm polyp at the hepatic flexure, removed with a cold snare. Resected and retrieved. - Moderate diverticulosis in the sigmoid colon, in the descending colon and in the transverse colon. - Small Internal Hemorrhoids. - The examination was otherwise normal on direct and retroflexion views. Recommendation: - Repeat colonoscopy date to be determined after pending pathology results are reviewed for surveillance based on pathology results. - Telephone endoscopist for pathology results in 2 weeks. Procedure Code(s): --- Professional --- 43693, Colonoscopy, flexible; with removal of tumor(s), polyp(s), or other lesion(s) by snare technique Diagnosis Code(s): --- Professional --- K57.30, Diverticulosis of large intestine without perforation or abscess without bleeding K63.5, Polyp of colon Z86.010, Personal history of colonic polyps CPT copyright 2019 [employer]. All rights reserved. The codes documented in this report are preliminary and upon certified medical coder review may be revised to meet current compliance requirements. Won Castillo MD oWn Castillo MD 08/09/2021 10:08:53 AM Electronically signed by Won Castillo MD Number of Addenda: 0 Note Initiated On: 08/09/2021 9:23 AM Estimated Blood Loss: Estimated blood loss: none.
[2021-08-09 10:25] VITALS: BP 188/82
== END 2021-08-09 10:35 | disposition home or self-care (01) ==
LOC: M OPP 07:41
PROVIDERS: ATTEND Internal Medicine Gastroenterology
DX: Z12.11 Encounter for screening for malignant neoplasm of colon (principal); Z86.010 Personal history of colon polyps; Z80.0 Family history of malignant neoplasm of digestive organs; D12.3 Benign neoplasm of transverse colon; K57.30 Diverticulosis of large intestine without perforation or abscess without bleeding; K64.8 Other hemorrhoids; Z79.82 Long term (current) use of aspirin; Z79.899 Other long term (current) drug therapy; Z88.2 Allergy status to sulfonamides; Z92.3 Personal history of irradiation

== ENCOUNTER → 2022-07-22 | Outpatient (CLI) | payer MEDICARE, OTHER ==
[~2022-07-22] MED LIST changes: -LIDOCAINE 2% 100MG/5ML SDV (FOR ANES.) As Ordered ONE; -NS 1,000 ML IV ONE; -TRIA37.53 PO; +TRIA37.577 PO; -propofoL 200 MG/20 ML VIAL As Ordered ONE
== END ==
LOC: M WHC 08:03
PROVIDERS: ATTEND Nurse Practitioner
DX: Z12.31 Encounter for screening mammogram for malignant neoplasm of breast (principal)

== ENCOUNTER → 2022-08-05 | Outpatient (CLI) | payer MEDICARE, OTHER | LOC: M RAD 07:52 | PROVIDERS: ATTEND Nurse Practitioner | DX: I10 Essential (primary) hypertension (principal); G44.89 Other headache syndrome ==

== ENCOUNTER → 2022-08-26 | Outpatient (CLI) | payer MEDICARE, OTHER | LOC: M RAD 13:53 | PROVIDERS: ATTEND Nurse Practitioner | DX: I65.23 Occlusion and stenosis of bilateral carotid arteries (principal) ==

== ENCOUNTER 2023-05-02 08:51 | Day surgery (SDC) | payer MEDICARE, OTHER ==
[~2023-05-02] VITALS: Ht 170.2 cm; Wt 69.4 kg
[~2023-05-02 08:51] MED LIST changes: +AMLO1TAB24 PO; +CEFUROXIME 1MG/0.1ML INTRACAMERAL INJ As Ordered ONE; +CYAN500T14 PO; +CYCLOPENTOLATE 1% OPHTH SOLN 2ML BTL OD SCH; +GABA-282 PO; +HYDR-3490 PO; +LIDOCAINE 1% SDV 5ML VIAL As Ordered ONE; +LORA-243 PO; +LOSA100T46 PO; +METO1TAB7 PO; +OFLOXACIN 0.3 % (OCUFLOX) OPTH SOL 5ML OD SCH; +PHENYLEPHRINE 2.5% OPHTH SOL 2ML OD SCH; +PRAV10TA3 PO; +PROPARACAINE 0.5% OPHTH SOL 15ML OD ONE; +SERT25TA21 PO; +SERT50TA29 PO; +TROPICAMIDE 1% OPHTH SOLN 15ML OD SCH; +VITA100093 PO
[2023-05-02] MEDS ORDERED: MIDAZOLAM INJ 2MG/2ML VIAL As Ordered ONE (09:57)
[2023-05-02] MEDS ORDERED: fentaNYL 100 MCG/2 ML INJECTION As Ordered ONE (09:57)
[2023-05-02] MEDS ORDERED: BSS IRR 500ML/OMIDRIA 4ML IRR BAG (OR ONLY) As Ordered ONE (10:44)
[2023-05-02 11:32] VITALS: BP 157/70; TEMP 96.6; O2SAT 97
== END 2023-05-02 12:00 | disposition home or self-care (01) ==
LOC: M SDC 08:51
PROVIDERS: ATTEND Ophthalmology
DX: H25.11 Age-related nuclear cataract, right eye (principal); I10 Essential (primary) hypertension; E78.5 Hyperlipidemia, unspecified; K21.9 Gastro-esophageal reflux disease without esophagitis; Z86.718 Personal history of other venous thrombosis and embolism; M81.0 Age-related osteoporosis without current pathological fracture; F41.9 Anxiety disorder, unspecified; Z79.82 Long term (current) use of aspirin; Z79.899 Other long term (current) drug therapy
CPT/HCPCS: 66984; J0697; J1097; J2250; J3010; V2788

== ENCOUNTER 2023-06-20 08:39 | Day surgery (SDC) | payer MEDICARE, OTHER ==
[~2023-06-20] VITALS: Ht 167.6 cm; Wt 70.6 kg
[~2023-06-20 08:39] MED LIST changes: +ACETYLCHOLINE OPHTH SOLN 1% 2ML (MIOCHOL-E) As Ordered ONE; -CYCLOPENTOLATE 1% OPHTH SOLN 2ML BTL OD SCH; +CYCLOPENTOLATE 1% OPHTH SOLN 2ML BTL OS SCH; -OFLOXACIN 0.3 % (OCUFLOX) OPTH SOL 5ML OD SCH; +OFLOXACIN 0.3 % (OCUFLOX) OPTH SOL 5ML OS SCH; +PANT20TA6 PO; -PHENYLEPHRINE 2.5% OPHTH SOL 2ML OD SCH; +PHENYLEPHRINE 2.5% OPHTH SOL 2ML OS SCH; -PROPARACAINE 0.5% OPHTH SOL 15ML OD ONE; +PROPARACAINE 0.5% OPHTH SOL 15ML OS ONE; -TROPICAMIDE 1% OPHTH SOLN 15ML OD SCH; +TROPICAMIDE 1% OPHTH SOLN 15ML OS SCH
[2023-06-20] MEDS ORDERED: BSS IRR 500ML/OMIDRIA 4ML IRR BAG (OR ONLY) As Ordered ONE (09:11)
[2023-06-20] MEDS ORDERED: MIDAZOLAM INJ 2MG/2ML VIAL As Ordered ONE (11:31)
[2023-06-20 11:55] VITALS: BP 152/65; TEMP 97.2; O2SAT 98
== END 2023-06-20 12:17 | disposition home or self-care (01) ==
LOC: M SDC 08:39
PROVIDERS: ATTEND Ophthalmology
DX: H25.12 Age-related nuclear cataract, left eye (principal); I10 Essential (primary) hypertension; K21.9 Gastro-esophageal reflux disease without esophagitis; E78.5 Hyperlipidemia, unspecified; Z88.2 Allergy status to sulfonamides; Z86.718 Personal history of other venous thrombosis and embolism; M81.0 Age-related osteoporosis without current pathological fracture; F41.9 Anxiety disorder, unspecified; F32.A Depression, unspecified; Z79.82 Long term (current) use of aspirin
CPT/HCPCS: 66984; J0697; J1097; J2250; V2788

== ENCOUNTER → 2023-07-24 | Outpatient (CLI) | payer MEDICARE, OTHER ==
[~2023-07-24] MED LIST changes: -ACETYLCHOLINE OPHTH SOLN 1% 2ML (MIOCHOL-E) As Ordered ONE; -CEFUROXIME 1MG/0.1ML INTRACAMERAL INJ As Ordered ONE; -CYCLOPENTOLATE 1% OPHTH SOLN 2ML BTL OS SCH; -LIDOCAINE 1% SDV 5ML VIAL As Ordered ONE; -OFLOXACIN 0.3 % (OCUFLOX) OPTH SOL 5ML OS SCH; -PHENYLEPHRINE 2.5% OPHTH SOL 2ML OS SCH; -PROPARACAINE 0.5% OPHTH SOL 15ML OS ONE; -TROPICAMIDE 1% OPHTH SOLN 15ML OS SCH
== END ==
LOC: M WHC 10:08
PROVIDERS: ATTEND Nurse Practitioner
DX: Z12.31 Encounter for screening mammogram for malignant neoplasm of breast (principal); Z13.820 Encounter for screening for osteoporosis; N95.1 Menopausal and female climacteric states; M85.851 Other specified disorders of bone density and structure, right thigh

== ENCOUNTER 2023-08-24 18:21 | Emergency (ER) | payer MEDICARE, OTHER ==
[~2023-08-24] VITALS: Ht 167.6 cm; Wt 73.8 kg
[2023-08-24] MEDS ORDERED: LIDOCAINE W/EPINEPHRINE 1% 20ML VIAL SC ONE (18:50)
[2023-08-24] MEDS ORDERED: BOOSTRIX VACCINE (TETANUS/DIPHTH/ACEL. PERTUSSIS) 0.5ML SYR IM ONE (18:50)
[2023-08-24 19:28] LABS: BASO # 0.1 10^3/uL (0.0-0.2); BASO % 0.5 % (0.0-1.0); EOS # 0.3 10^3/uL (0.0-0.5); EOS % 2.5 % (0.0-3.0); HEMATOCRIT 38.4 % (36.0-47.0); HEMOGLOBIN 12.6 g/dl (12.0-15.5); LYMPH # 0.8 10^3/uL (1.5-5.0); LYMPH % 6.1 % (24.0-44.0); MEAN CORPUSCULAR HEMOGLOBIN 31.3 pg (27.0-33.0); MEAN CORPUSCULAR HGB CONC 32.8 g/dl (32.0-36.5); MEAN CORPUSCULAR VOLUME 95.3 fl (80.0-96.0); MONO # 1.1 10^3/uL (0.0-0.8); MONO % 7.6 % (2.0-8.0); NEUTROPHILS # 11.5 10^3/uL (1.5-8.5); NEUTROPHILS % 82.7 % (36.0-66.0); PLATELET COUNT, AUTOMATED 273 10^3/uL (150-450); RED BLOOD COUNT 4.03 10^6/uL (4.00-5.40); WHITE BLOOD COUNT 13.9 10^3/uL (4.0-10.0)
[2023-08-24] MEDS ORDERED: ACETAMINOPHEN 325 MG TAB PO ONE (19:30)
[2023-08-24 19:50] LABS: ALBUMIN 3.8 G/DL (3.2-5.2); ALKALINE PHOSPHATASE 78 U/L (46-116); ALT/SGPT 22 U/L (7.0-40); AST/SGOT 35 U/L (<34); BILIRUBIN,DIRECT < 0.1 MG/DL (<0.4); BILIRUBIN,TOTAL 0.3 MG/DL (0.3-1.2); BLOOD UREA NITROGEN 28 MG/DL (9-23); CALCIUM LEVEL 9.6 MG/DL (8.3-10.6); CARBON DIOXIDE LEVEL 30 MMOL/L (20-31); CHLORIDE LEVEL 97 MMOL/L (98-107); CREATININE FOR GFR 0.94 MG/DL (0.55-1.30); GLOMERULAR FILTRATION RATE > 60.0 (>39); GLUCOSE, FASTING 110 MG/DL (74-106); POTASSIUM SERUM 3.8 MMOL/L (3.5-5.1); SODIUM LEVEL 135 MMOL/L (136-145); TOTAL PROTEIN 6.9 G/DL (5.7-8.2)
[2023-08-24 19:54] LABS: INR 0.95; PROTHROMBIN TIME 12.4 SECONDS (12.5-14.5)
[2023-08-24 19:55] LABS: PARTIAL THROMBOPLASTIN TIME 25.7 SECONDS (24.8-34.2)
[2023-08-24] MEDS ORDERED: AMPICILLIN SOD/SULBACTAM SOD 3 GM in D5W MINI-BAG PLUS 100 ML IV ONE (20:15)
[2023-08-24 21:29] LABS: RSV AMPLIFICATION NEGATIVE (NEGATIVE)
[2023-08-24 22:23] VITALS: BP 175/85; TEMP 97.3; O2SAT 98
== END 2023-08-24 22:32 | disposition short-term general hospital (02) ==
LOC: M ED 18:21 → EDBD 18:21 → M ED 22:32
DX: S02.40CA Maxillary fracture, right side, initial encounter for closed fracture (principal); W01.0XXA Fall on same level from slipping, tripping and stumbling without subsequent striking against object, initial encounter; M17.11 Unilateral primary osteoarthritis, right knee; I10 Essential (primary) hypertension; K21.9 Gastro-esophageal reflux disease without esophagitis; E78.5 Hyperlipidemia, unspecified; F41.9 Anxiety disorder, unspecified; Y92.009 Unspecified place in unspecified non-institutional (private) residence as the place of occurrence of the external cause; Y93.9 Activity, unspecified; Y99.9 Unspecified external cause status; Z88.2 Allergy status to sulfonamides; Z79.82 Long term (current) use of aspirin; Z79.891 Long term (current) use of opiate analgesic; Z79.899 Other long term (current) drug therapy; Z23 Encounter for immunization
CPT/HCPCS: 70450; 70486; 72125; 73564; 80048; 80076; 85025; 85610; 85730; 86850; 86900; 86901; 87631; 90471; 90715; 93005; 93041; 94760; 96365; 99285; J0295

== ENCOUNTER → 2024-07-26 | Outpatient (CLI) | payer MEDICARE, OTHER ==
[~2024-07-26] MED LIST changes: -ESOM0.1C PO; +ESOM20CA2 PO; +GABA-1172 PO; -GABA-282 PO
== END ==
LOC: M WHC 08:37
PROVIDERS: ATTEND Nurse Practitioner
DX: Z12.31 Encounter for screening mammogram for malignant neoplasm of breast (principal)

== ENCOUNTER → 2025-08-01 | Outpatient (CLI) | payer MEDICARE, OTHER ==
[~2025-08-01] MED LIST changes: +PRAV10TA PO; -PRAV10TA3 PO; -PRAV10TA4 PO; +PRAV10TA43 PO
== END ==
LOC: M WHC 09:56
PROVIDERS: ATTEND Family Medicine
DX: Z12.31 Encounter for screening mammogram for malignant neoplasm of breast (principal); R92.323 Mammographic fibroglandular density, bilateral breasts